=== PATIENT | female | born 1980 | race Caucasian/White ===

== ENCOUNTER → 2022-09-07 13:18 | Outpatient (BNVA) | payer OTHER, SELFPAY | PROVIDERS: PCP Internal Medicine Geriatric Medicine; Visit Provider Neurological Surgery | DX: M50.10 Cervical disc disorder with radiculopathy, unspecified cervical region (principal) | CPT/HCPCS: 99202 ==

== ENCOUNTER 2023-01-14 15:08 | Outpatient (AMB) | payer OTHER, SELFPAY ==
--- NOTE | 2023-01-14 15:24 | HO.SPINEOV ---
Intake Intake Visit Reasons: F/up after PT Intake Note: Mrs. Mehta is here today to follow up PT results. 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 Kathe diaz in August. She states that her neck pain with radicular symptoms down her left arm has gotten progressively worse since our last visit with Dr. Archuleta. She reports no symptom relief, even with her current tramadol prescription from her primary care provider. She is very concerned because she feels like she has increased weakness of her left arm and hand compared to when she saw Dr. Kathe diaz in August. She also endorses difficulty sleeping in the last couple of weeks and states that on average she is only able to sleep 2-3 hours per night. She had an MRI of the cervical spine done at [facility] on 08/04/2022 which showed a cervical disc herniation C6-C7 compressing the left C7 nerve root. An MRI of the lumbar spine shows status post lumbar fusion and adjacent degenerative disc disease and spinal stenosis. Dr. Archuleta sent her for an EMG, and recommended that she complete physical therapy then be seen back in the office for further discussion of her symptoms based on those results. Her EMG was completed at [facility] on 09/27/2022 and was completely unremarkable, without any signs of polyneuropathy or carpal tunnel. Due to these findings we think that her left C7 nerve root compression should be addressed. The MRI films were reviewed with ANABEL Balderas who also evaluated the patient with me today. It was decided that she should be booked for a C6-C7 ACDF. I will call her back we determine the date. Total amount of time spent in this visit was 30 minutes in discussion of symptoms, MRI cervical spine and EMG imaging results and subsequent plan of care. Brennon Archuleta MD,PhD [facility] Coding Level of Care Code Est Pt Level 4 (21784) Diagnoses Herniation of cervical intervertebral disc with radiculopathy M50.10
== END 2023-01-14 16:31 | disposition home or self-care (01) ==
PROVIDERS: PCP Internal Medicine Geriatric Medicine; Visit Provider Physician Assistant
DX: M50.10 Cervical disc disorder with radiculopathy, unspecified cervical region (principal)
CPT/HCPCS: 99214

== ENCOUNTER → 2023-01-14 15:08 | Outpatient (BNVA) | payer OTHER, SELFPAY | PROVIDERS: PCP Internal Medicine Geriatric Medicine; Visit Provider Physician Assistant | DX: M50.10 Cervical disc disorder with radiculopathy, unspecified cervical region (principal) | CPT/HCPCS: 99212 ==

== ENCOUNTER 2023-02-24 06:01 | Day surgery (SDC) | payer OTHER, SELFPAY ==
--- NOTE | 2023-02-10 | ECG_ITS ---
Test Reason : preop Blood Pressure : / mmHG Vent. Rate : 068 BPM Atrial Rate : 068 BPM P-R Int : 166 ms QRS Dur : 092 ms QT Int : 406 ms P-R-T Axes : 035 018 004 degrees QTc Int : 431 ms Normal sinus rhythm Normal ECG No previous ECGs available Referred By: Calixto Shi Electronically Signed By:VI BOOKER
[2023-02-10 11:59] VITALS: BP 131/84; PULSE 79; RESP 16; O2SAT 97; BMI 36.6
[2023-02-10 13:59] LABS: Hematocrit 39.9 % (37.0-47.0); Hemoglobin 13.5 g/dl (12.0-16.0); Mean Corpuscular HGB Conc 33.8 g/dl (31.0-35.0); Mean Corpuscular Volume 88.7 fL (80.0-98.0); Mean Platelet Volume 11.3 fL (9.4-12.3); Platelet Count 214 X10*3/uL (160-400); Red Cell Distribution Width 12.3 % (11.0-16.0); White Blood Count 4.8 X10*3/uL (4.8-10.8)
[2023-02-10 14:25] LABS: Anion Gap 13 (12-20); Blood Urea Nitrogen 14 mg/dL (9-16); Calcium 9.5 mg/dL (8.4-10.2); Carbon Dioxide 22 mmol/L (22-29); Chloride 108 mmol/L (96-108); Creatinine Clr Calc Pharmacy 115.1; Estimated Glomerular Filt Rate > 60; Glucose Random 84 mg/dL (60-115); Potassium 3.7 mmol/L (3.3-5.1); Sodium 139 mmol/L (135-145)
--- NOTE | 2023-02-23 09:51 | HO.ANESPROP2 ---
Documented by User: Saundra Gaspar NP 02/23/23 09:54 HPI - Anesthesia Eval Consult details Narrative: 42yo F for C6-7 Ant Cerv Discectomy w/ fusion s/p tubal Seen in PAT 02/10/[address] Jose Guadalupe BOWER Active Problems Active Problems: All Active Problems (Updated 02/10/23 @ 10:04 by Kati Cruz, RN) Herniation of cervical intervertebral disc with radiculopathy (Acute) Past Medical History Medical History (Updated 02/24/23 @ 06:30 by Adriane Conway, BALBINA) delivery delivered Spondylosis, lumbosacral PTSD (post-traumatic stress disorder) Numbness of foot Neck pain, chronic Migraine headache Major depression in remission Lumbar radiculopathy HTN (hypertension) Generalized anxiety disorder Dizziness BERRY I (cervical intraepithelial neoplasia I) Chronic low back pain Cervical stenosis of spinal canal Bilateral hand numbness ADD (attention deficit disorder) Surgical History Surgical History (Updated 02/10/23 @ 10:07 by Kati Cruz RN) History of tonsillectomy and adenoidectomy Hx of appendectomy History of colposcopy Hx of bilateral breast reduction surgery History of lumbar fusion History of tubal ligation Hx laparoscopic cholecystectomy Social History Social History Are you a primary patient centered care specialist to a significant other at home: Yes (daughter with spina bifida) Do you presently have visiting nurse or other home services: No Patient Tobacco Use Status: Former Tobacco user Quit Date: 04/2022 Tobacco use type: Cigarette Second Hand Smoke Exposure: No Meds Allergies Allergy/AdvReac Type Severity Reaction Status Date / Time erythromycin base Allergy Severe mouth sores Verified 02/09/23 09:29 amoxicillin Allergy Rash Verified 02/09/23 09:28 codeine AdvReac Severe Nausea and Verified 02/24/23 06:13 Vomiting Home Medications Medication Instructions Recorded Confirmed Last Taken Type albuterol sulfate 90 mcg/actuation 2 puff inhalation Q4H PRN wheezing 02/09/23 02/09/23 Unknown History aerosol inhaler (Ventolin HFA) amlodipine 5 mg tablet 7.5 mg PO DAILY 02/09/23 02/09/23 02/24/23 History dextroamphetamine-amphetamine 10 1 tab PO TID 02/09/23 02/09/23 Unknown History mg tablet gabapentin 600 mg tablet 600 mg PO TID 02/09/23 02/09/23 Unknown History meclizine 25 mg tablet 25 mg PO BID PRN dizziness 02/09/23 02/09/23 Unknown History oxycodone 5 mg tablet 5 mg PO Q6H PRN pain 02/09/23 02/09/23 02/24/23 History sumatriptan succinate 100 mg tablet 100 mg PO QD-BID PRN Headache 02/09/23 02/09/23 Unknown History acetaminophen 500 mg capsule 1,000 mg PO Q6H PRN Pain 02/10/23 02/10/23 Unknown History Exam Exam Date and Time: February 23, 2023 0951 Height,Weight and Vital Signs: Height 5 ft 2 in Weight 90.7 kg Last Vital Signs Pulse 79 02/10/23 11:59 Resp 16 02/10/23 11:59 BP 131/84 02/10/23 11:59 Pulse Ox 97 02/10/23 11:59 O2 Del Method Room Air 02/10/23 11:59 Pertinent Lab Results Pertinent Lab Results: Laboratory Tests 02/10/23 12:54 WBC 4.8 RBC 4.50 Hgb 13.5 Hct 39.9 MCV 88.7 MCH 30.0 MCHC 33.8 RDW 12.3 Plt Count 214 MPV 11.3 Absolute Nucleated RBC 0.000 Nucleated RBC % (auto) 0.0 Sodium 139 Potassium 3.7 Chloride 108 Carbon Dioxide 22 Anion Gap 13 BUN 14 Creatinine 0.68 Estim Creat Clear Calc 115.1 Estimated GFR > 60 Random Glucose 84 Calcium 9.5 Narrative Narrative: EKG 02/10/23 Vent. Rate : 068 BPM Atrial Rate : 068 BPM P-R Int : 166 ms QRS Dur : 092 ms QT Int : 406 ms P-R-T Axes : 035 018 004 degrees QTc Int : 431 ms Normal sinus rhythm Normal ECG No previous ECGs available Assessment and Plan Assessment Anesthesia Assessment: Chart Reviewed Documented by User: Paul Cox MD 02/24/23 18:26 [facility] Past Medical History Medical History (Updated 02/24/23 @ 06:30 by Adriane Conway RN) delivery delivered Spondylosis, lumbosacral PTSD (post-traumatic stress disorder) Numbness of foot Neck pain, chronic Migraine headache Major depression in remission Lumbar radiculopathy HTN (hypertension) Generalized anxiety disorder Dizziness BERRY I (cervical intraepithelial neoplasia I) Chronic low back pain Cervical stenosis of spinal canal Bilateral hand numbness ADD (attention deficit disorder) Functional capacity: independent ambulation Family History Family history of problems with anesthesia: No Surgical History Surgical History (Updated 02/10/23 @ 10:07 by Kati Cruz RN) History of tonsillectomy and adenoidectomy Hx of appendectomy History of colposcopy Hx of bilateral breast reduction surgery History of lumbar fusion History of tubal ligation Hx laparoscopic cholecystectomy History of Problems with Anesthesia: No Social History Social History Are you a primary patient centered care specialist to a significant other at home: Yes (daughter with spina bifida) Do you presently have visiting nurse or other home services: No Patient Tobacco Use Status: Former Tobacco user Quit Date: 04/2022 Tobacco use type: Cigarette Second Hand Smoke Exposure: No Meds Allergies Allergy/AdvReac Type Severity Reaction Status Date / Time erythromycin base Allergy Severe mouth sores Verified 02/09/23 09:29 amoxicillin Allergy Rash Verified 02/09/23 09:28 codeine AdvReac Severe Nausea and Verified 02/24/23 06:13 Vomiting Home Medications Medication Instructions Recorded Confirmed Last Taken Type albuterol sulfate 90 mcg/actuation 2 puff inhalation Q4H PRN wheezing 02/09/23 02/09/23 Unknown History aerosol inhaler (Ventolin HFA) amlodipine 5 mg tablet 7.5 mg PO DAILY 02/09/23 02/09/23 02/24/23 History dextroamphetamine-amphetamine 10 1 tab PO TID 02/09/23 02/09/23 Unknown History mg tablet gabapentin 600 mg tablet 600 mg PO TID 02/09/23 02/09/23 Unknown History meclizine 25 mg tablet 25 mg PO BID PRN dizziness 02/09/23 02/09/23 Unknown History oxycodone 5 mg tablet 5 mg PO Q6H PRN pain 02/09/23 02/09/23 02/24/23 History sumatriptan succinate 100 mg tablet 100 mg PO QD-BID PRN Headache 02/09/23 02/09/23 Unknown History acetaminophen 500 mg capsule 1,000 mg PO Q6H PRN Pain 02/10/23 02/10/23 Unknown History Exam Airway Mallampati Class: III TM Dist: >3cm Neck ROM: Limited Loose/Missing/Broken Teeth: Yes (poor dentition , chipped teeth ) Assessment and Plan Assessment Anesthesia Assessment: Anesthesia Plan Discussed Final Anesthetic Review Family History of Problems with Anesthesia: No History of Problems with Anesthesia: No NPO: Yes ASA Class: III Final Preanesthetic Review: Meds/Allgs Chart Reviewed, Consent Obtained/Reviewed and Anes Risks/Benef Reviewed Patient Risk: Intermediate Procedure Risk: Intermediate Anesthetic Plan Anesthetic Plan: GA and Agree w/ Assess. and Plan Disposition: Standard PACU
[2023-02-24] VITALS (13 sets, daily range): BP systolic 123–152; BP diastolic 68–86; PULSE 66–89; RESP 13–21; TEMP 36.2–37.3; O2SAT 95–100; BMI 35.8
--- NOTE | ~2023-02-24 | FL_ITS ---
EXAMINATION: XR FLUOROSCOPY WITH IMAGES CLINICAL INFORMATION: C6-C7 anterior cervical discectomy with fusion. COMPARISON: None available. TECHNIQUE: Fluoroscopy Supervised By: Dr. Chris Archuleta. Fluoroscopy Time: 0.1 minute. Cumulative Dose: 8.65 mGy. DAP: 1.67 Gycm2. Images: 2. FINDINGS: Images demonstrate ACDF of the lower cervical spine FL/FL guidance in OR IMPRESSION: Fluoroscopy guidance for cervical spine surgery.
[2023-02-24] MEDS: Lactated Ringers 1,000 ML 100 ML IVCONT (06:38)
[2023-02-24] MEDS: methocarbamoL 750 MG TABLET PO (06:56)
[2023-02-24] MEDS: Gabapentin 300 MG CAPSULE PO (06:56)
[2023-02-24] MEDS: vancomycin HCL 1,500 MG in 0.9 % Sodium Chloride 500 ML 333.33 MG IV (06:56)
--- NOTE | 2023-02-24 06:59 | MHC.SHP ---
Pre-Procedural Eval Section A Date of Service: 02/24/23 Section B Chief Complaint: Cervical disc disorder with radiculopathy, unspeci Allergies: Allergies Allergy/AdvReac Type Severity Reaction Status Date / Time erythromycin base Allergy Severe mouth sores Verified 02/09/23 09:29 amoxicillin Allergy Rash Verified 02/09/23 09:28 codeine AdvReac Severe Nausea and Verified 02/24/23 06:13 Vomiting Review of Systems Sugical H&P ROS: Negative: Constitution, Cardiovascular, Respiratory, Neurological, Psychiatric, Hem-Onc, Allergic/Immunologic, Gastrointestinal, Genitourinary, Musculoskeletal, Integumentary, Endocrine and Eyes/Ears/Nose/Throat Exam Surgical H&P Exam: Not Evaluated: HEENT, Not Evaluated: Heart, Not Evaluated: Lungs, Not Evaluated: Extremities, Not Evaluated: Abdomen, Not Evaluated: Skin and Not Evaluated: Neurological Plan Diagnosis/Plan: Unchanged I have reviewed the history and physical and performed a pertinent physical examination on my patient. No changes have occurred unless specified. Plan remains the same, C6-7 ACDF. Time Spent With Patient Time: Total time managing care of this patient today _10___ minutes.
--- NOTE | 2023-02-24 08:03 | PM.DS ---
DS: Providers Provider Primary care physician: Karlie Galloway MD DS: Summary Time Spent with Patient Time attestation: Total time managing care of this patient today ____ minutes. Physical Exam Vital Signs: Vital Signs: Last Vital Signs Temp 97.8 F 02/24/23 06:25 Pulse 72 02/24/23 06:25 Resp 16 02/24/23 06:25 BP 123/75 02/24/23 06:25 Pulse Ox 97 02/24/23 06:25 O2 Del Method Room Air 02/24/23 06:25 BMI result Body Mass Index 35.8 DS: Data Data Completed and Pending Labs on day of discharge: Laboratory Results - last 24 hr 02/24/23 06:29 Blood Type A Positive Antibody Screen NEGATIVE Discharge Plan Discharge Patient Disposition: Home, Self-Care Referrals: Karlie Galloway MD [Primary Care Provider] - 1 Week Discharge Medications: Continued gabapentin 600 mg tablet 600 mg PO TID sumatriptan succinate 100 mg tablet 100 mg PO QD-BID PRN (Reason: Headache) dextroamphetamine-amphetamine 10 mg tablet 1 tab PO TID amlodipine 5 mg tablet 7.5 mg PO DAILY meclizine 25 mg tablet 25 mg PO BID PRN (Reason: dizziness) albuterol sulfate [Ventolin HFA] 90 mcg/actuation HFA aerosol inhaler 2 puff inhalation Q4H PRN (Reason: wheezing) oxycodone 5 mg tablet 5 mg PO Q6H PRN (Reason: pain) acetaminophen 500 mg Capsule 1,000 mg PO Q6H PRN (Reason: Pain) Diet: Advance to usual diet Activity on Discharge: As tolerated Activity Restrictions/Additional Instructions: After your spinal surgery we ask you to observe the following restrictions/guidelines: Activity: It is normal to feel some discomfort as you increase your activity, but that will improve with time. We ask you avoid heavy lifting or acitivities that cause pain. As a general rule, 8lbs is a safe limit for lifting right after surgery. Walk as much as you feel comfortable but not to exhaustion. You will feel extra tired the first few days after surgery. Stay well hydrated. It is OK to walk up and down stairs You may return to driving when you are off narcotics (such as vicodin, oxycodone, dilaudid, etc), and you are back to normal functional capacity. If you have any concerns please check with office before driving. Return to work is specific to each patient and each surgery, so please speak with your doctor/PA at first follow up. Please bring paperwork such as FMLA at that time if you need it filled out. Medications: We will give you a short supply of narcotics after surgery (usually one weeks worth). If you need more please call the office but do not use more than prescribed. You will need to give our office 48 hours notice if you need narcotics refilled and we do not fill narcotics on weekends or evenings. If you are on a narcotic, it is a good idea to take a stool softener such as colace or senna to avoid constipation If you take blood thinner such as aspirin, Plavix, Coumadin, Effient, Eliquis etc for conditions such as Afib, DVT, Pulmonary embolus, coronary disease, stents etc please speak with your surgeon about specific details as to when you can resume these medications. You can resume NSAIDs on post op day 1 (eg: Motrin, Naproxen, etc). Follow up: Please call the office, , after surgery to arrange a 3 week follow up for wound check. Wound Care: You may remove your dressing on the first day after surgery. You may leave open to air. Please do not remove the steri strips underneath. they will fall off on their own in one week. IT IS NORMAL FOR THE WOUND TO OOZE OR BE BLOODY FOR A FEW DAYS AFTER SURGERY. IF THIS HAPPENS JUST PLACE NEW DRESSING OVER IT TO AVOID STAINING CLOTHES. You may shower on post op day # 1 We ask that you do not let the water soak the wound. If it does get wet, just towel dry lightly. Please do not scrub your incision or place any type of chemical/ointment on the wound. No tub baths, pools or jacuzzis for one month. If you have any leaking or redness from your wound, or fevers, please call the office.
--- NOTE | 2023-02-24 09:11 | P.OP_ITS ---
Operative Note Operative Note Date of Service: 02/24/23 Narrative: Preoperative Diagnosis: left cervical radiculopathy due to C6-C7 disc herniation compressing the left C7 nerve root. Procedure: [id number] discectomy, arthrodesis and implantation cage ; C6- C7 anterior instrumentation ; local autograft; microscope Informed Consent was obtained for this operation. I have explained the nature, purpose and benefits of the operation. I have discussed the risks and benefit of the operation including possible complications or adverse events with patient/family. Alternative(s) were discussed with the patient with their relative benefits and risks as well as the consequences of not accepting the operation were included in obtaining consent. Surgeon: HELENE TOMLINSON MD, PHD Procedure Assisted By: saul Wyman Description of Procedure: this 6-year-old female is suffering from severe left arm pain due to a disc herniation C6-C7 compressing the left C7 nerve root. She was offered an anterior diskectomy and fusion C6-7 to decompress the C7 nerve root. The proce dure and complications were explained. The patient was consented. The patient was brought to the operating room and endotracheally intubated. The patient was put in supine position with slight extension of the neck. Prep and drape was done followed by timeout. A mid cervical incision was made followed by opening of the platysma. The prevertebral fascia was reached following the natural planes while the physician healthcare administrative assistant provided manual retraction. The prevertebral fascia was opened to expose the disc space. A spinal needle was placed in the disk space to confirm the correct level with xray. The longus colli muscles were released bilaterally and a self retaining retractor was inserted. Two Browning pins were placed in the C6 and C7 vertebral bodies and distraction was give over the interspace. The discectomy was completed toward the posterior annulus of the disc. The microscope was brought in. The remainder of the discectomy was completed. The posterior ligament was opened and resected to expose the underlying dura. Disc fragments were seen in the left C7 foramen and removed piece meal with a curved pituitary until the underlying C7 nerve root was completely decompressed. A venous bleeding from the right C7 foramen was tamponade with Surgiflo. Osteophytes were resected from the body of C6 and C7 and saved for autograft. The endplates were prepared after which a 6 mm cage filled with autograft was inserted into the disc space. A separate attached plate was locked down with 2 x 14 mm screws as anterior instrumentation. Final x-rays in AP and lateral projection showed a satisfactory position of the implant. The physician healthcare administrative assistant took over. The Browning pin was removed. Hemostasis was done. He closed the incision in 2 layers with a 3-0 Vicryl. Steri-Strips used to approximate incision. An OpSite with Tegaderm was used to cover the incision. All sponge and needle counts were correct. Patient was extubated and transported in stable is to recovery room. Anesthesia: General Estimated Blood Loss (ml): 160 mL Duration of Surgery: 65 minutes Postoperative Plan: Discharge home Complications: None
--- NOTE | 2023-02-24 09:18 | P.DS_ITS ---
DS: Providers Provider Date of Service: 02/24/23 Date of discharge: 02/24/23 Primary care physician: Karlie Galloway MD Admitting clinician: Chris Archuleta DS: Summary Time Spent with Patient Time attestation: Total time managing care of this patient today ____ minutes. Discharge coordination time: Less than 30 minutes Quality: Safe Use of Opioids Does Pt have an Active Cancer Diagnosis on the Problem List?: No Quality: Stroke Does the patient have a stroke diagnosis?: No Physical Exam Vital Signs: Vital Signs: Last Vital Signs Temp 97.8 F 02/24/23 06:25 Pulse 72 02/24/23 06:25 Resp 16 02/24/23 06:25 BP 123/75 02/24/23 06:25 Pulse Ox 97 02/24/23 06:25 O2 Del Method Room Air 02/24/23 06:25 BMI result Body Mass Index 35.8 DS: Data Data Completed and Pending Labs on day of discharge: Laboratory Results - last 24 hr 02/24/23 06:29 Blood Type A Positive Antibody Screen NEGATIVE Discharge Plan Discharge Patient Disposition: Home, Self-Care Referrals: Karlie Galloway MD [Primary Care Provider] - 1 Week Discharge Medications: Continued gabapentin 600 mg tablet 600 mg PO TID sumatriptan succinate 100 mg tablet 100 mg PO QD-BID PRN (Reason: Headache) dextroamphetamine-amphetamine 10 mg tablet 1 tab PO TID amlodipine 5 mg tablet 7.5 mg PO DAILY meclizine 25 mg tablet 25 mg PO BID PRN (Reason: dizziness) albuterol sulfate [Ventolin HFA] 90 mcg/actuation HFA aerosol inhaler 2 puff inhalation Q4H PRN (Reason: wheezing) oxycodone 5 mg tablet 5 mg PO Q6H PRN (Reason: pain) acetaminophen 500 mg Capsule 1,000 mg PO Q6H PRN (Reason: Pain) Discharge Orders: Discharge Order (Routine); Ordered 02/24/23 Ordered By: Cyril Balderas Diet: Advance to usual diet Activity on Discharge: As tolerated Activity Restrictions/Additional Instructions: After your spinal surgery we ask you to observe the following restrictions/guidelines: Activity: It is normal to feel some discomfort as you increase your activity, but that will improve with time. We ask you avoid heavy lifting or acitivities that cause pain. As a general rule, 8lbs is a safe limit for lifting right after surgery. Walk as much as you feel comfortable but not to exhaustion. You will feel extra tired the first few days after surgery. Stay well hydrated. It is OK to walk up and down stairs You may return to driving when you are off narcotics (such as vicodin, oxycodone, dilaudid, etc), and you are back to normal functional capacity. If yo u have any concerns please check with office before driving. Return to work is specific to each patient and each surgery, so please speak with your doctor/PA at first follow up. Please bring paperwork such as FMLA at that time if you need it filled out. Medications: We will give you a short supply of narcotics after surgery (usually one weeks worth). If you need more please call the office but do not use more than prescribed. You will need to give our office 48 hours notice if you need narcotics refilled and we do not fill narcotics on weekends or evenings. If you are on a narcotic, it is a good idea to take a stool softener such as colace or senna to avoid constipation If you take blood thinner such as aspirin, Plavix, Coumadin, Effient, Eliquis etc for conditions such as Afib, DVT, Pulmonary embolus, coronary disease, stents etc please speak with your surgeon about specific details as to when you can resume these medications. You can resume NSAIDs on post op day 1 (eg: Motrin, Naproxen, etc). Follow up: Please call the office, , after surgery to arrange a 3 week follow up for wound check. Wound Care: You may remove your dressing on the first day after surgery. You may leave open to air. Please do not remove the steri strips underneath. they will fall off on their own in one week. IT IS NORMAL FOR THE WOUND TO OOZE OR BE BLOODY FOR A FEW DAYS AFTER SURGERY. IF THIS HAPPENS JUST PLACE NEW DRESSING OVER IT TO AVOID STAINING CLOTHES. You may shower on post op day # 1 We ask that you do not let the water soak the wound. If it does get wet, just towel dry lightly. Please do not scrub your incision or place any type of chemical/ointment on the wound. No tub baths, pools or jacuzzis for one month. If you have any leaking or redness from your wound, or fevers, please call the office.
[2023-02-24] MEDS: fentaNYL citrate/PF 100 MCG/2 ML VIAL 25 MCG IVPUSH ×4 (09:51→10:11)
[2023-02-24] MEDS: oxyCODONE HCl Immed Release 5 MG TABLET PO (10:36)
== END 2023-02-24 11:49 | disposition home or self-care (01) ==
PROVIDERS: Anesthesiology; PCP Internal Medicine Geriatric Medicine; Visit Provider Neurological Surgery
PROC: (CPT 22551; principal; 2023-02-24 07:30)
DX: M50.10 Cervical disc disorder with radiculopathy, unspecified cervical region (principal); M50.223 Other cervical disc displacement at C6-C7 level; G89.29 Other chronic pain; M51.36 Other intervertebral disc degeneration, lumbar region; M48.061 Spinal stenosis, lumbar region without neurogenic claudication; Z98.1 Arthrodesis status; I10 Essential (primary) hypertension; Z79.899 Other long term (current) drug therapy; Z88.1 Allergy status to other antibiotic agents; Z88.5 Allergy status to narcotic agent; Z87.891 Personal history of nicotine dependence
CPT/HCPCS: 22551; 22853; 20936; 22845; 36415; 80048; 85027; 86850; 86900; 86901; 93005; C1713; J0131; J1100; J2250; J2371; J2405; J3010; J3371

== ENCOUNTER → 2023-02-24 06:01 | Outpatient (BNV) | payer OTHER, SELFPAY | PROVIDERS: PCP Internal Medicine Geriatric Medicine; Visit Provider Neurological Surgery | DX: M50.10 Cervical disc disorder with radiculopathy, unspecified cervical region (principal) | CPT/HCPCS: 20936; 22551; 22845; 22853; 99499 ==

== ENCOUNTER 2023-03-11 10:35 | Outpatient (AMB) | payer OTHER, SELFPAY ==
--- NOTE | 2023-03-11 10:38 | HO.SPINEOV ---
Intake Intake Visit Reasons: 1st post op Intake Note: Ms. Mehta is here for her 1st post-op visit. 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 She reports she is very satisfied with the surgery and feels much better than she did preoperatively. The patient reports she is up walking around and completing all of her ADLs. She reports that she no longer suffers from her left-sided shooting radiculopathy down her arm. She is able to fully extend/ flex/ rotator neck without issues, and has been driving recently. 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 She was provided with a return to work note. Full strength 5/5 UE / LE. Mobility is intact. Sensation grossly intact. Patient is able to ambulate well, rises from a seated position without difficulty. Incision site is closed, well healing, with no signs of drainage. We will follow-up with the patient in 6 weeks for her 2nd postoperative visit. At that time we will get x-rays to review with the patient. Brennon Archuleta MD,PhD [facility] Coding Level of Care Code Global (42670) Diagnoses H/O cervical spine surgery Z98.890
== END 2023-03-11 10:47 | disposition home or self-care (01) ==
PROVIDERS: PCP Internal Medicine Geriatric Medicine; Visit Provider Physician Assistant
DX: Z98.890 Other specified postprocedural states (principal)
CPT/HCPCS: 99024

== ENCOUNTER 2023-03-11 10:35 | Outpatient (REF) | payer OTHER, SELFPAY | END 2023-03-11 10:36 | disposition home or self-care (01) | LOC: HO.HOSX 10:35 | PROVIDERS: PCP Internal Medicine Geriatric Medicine; Visit Provider Physician Assistant | DX: Z13.89 Encounter for screening for other disorder (principal) ==

== ENCOUNTER 2023-04-22 09:53 | Outpatient (AMB) | payer OTHER, SELFPAY ==
--- NOTE | 2023-04-22 10:12 | A.OFFVIS_ITS ---
Intake Intake Visit Reasons: 2nd post op with xrays Intake Note: pt here for 2nd post op with Xrays Allergies erythromycin base Allergy (Severe, Verified 02/09/23 09:29) mouth sores amoxicillin Allergy (Verified 02/09/23 09:28) Rash codeine Adverse Reaction (Severe, Verified 02/24/23 06:13) Nausea and Vomiting PFSH Medical History (Updated 02/24/23 @ 06:30 by Adriane Conway RN) delivery delivered Spondylosis, lumbosacral PTSD (post-traumatic stress disorder) Numbness of foot Neck pain, chronic Migraine headache Major depression in remission Lumbar radiculopathy HTN (hypertension) Generalized anxiety disorder Dizziness BERRY I (cervical intraepithelial neoplasia I) Chronic low back pain Cervical stenosis of spinal canal Bilateral hand numbness ADD (attention deficit disorder) Surgical History (Updated 03/11/23 @ 10:48 by ANABEL Boyer) History of tonsillectomy and adenoidectomy Hx of appendectomy History of colposcopy Hx of bilateral breast reduction surgery History of lumbar fusion History of tubal ligation Hx laparoscopic cholecystectomy Social History Are you a primary care coordination manager to a significant other at home: Yes (daughter with spina bifida) Do you presently have visiting nurse or other home services: No Comment: aware of trip hazard Patient Tobacco Use Status: Former Tobacco user Quit Date: 04/2022 Tobacco use type: Cigarette Second Hand Smoke Exposure: No Assessment & Plan Assessment & Plan (1) H/O cervical spine surgery: Code(s): Z98.890 - Other specified postprocedural states Plan Procedure: C6-C7 ACDF Jen comes in today for her 2nd postoperative visit. She reports she is very satisfied with the surgery and feels much better than she did pre-operatively. The patient reports she is up walking around and completing all of her ADLs. She reports that she no longer suffers from her shooting pains down her arms. She did report a recent episode of dizziness for which she was evaluated at [facility]. She reports they found no obvious reason for the dizziness, aside from an incidental finding on head CT of a Chiari 1 malformation. She reports she has had no symptoms since this incident. She did report a desire to be re-evaluated by us for a new complaint of low back pain which has been persistent for years but most recently has become more noticeable as her neck and arm pain has resolved. No neurological deficit. Patient is able to ambulate well, rises from a seated position without difficulty. Incision site is closed, well healing, with no signs of drainage. There is no need for further follow-up regarding this surgery. The patient will be making a new appointment for her low back. Brennon Archuleta MD,PhD [facility] Coding Level of Care Code Global (96963) Diagnoses H/O cervical spine surgery Z98.890
== END 2023-04-22 10:41 | disposition home or self-care (01) ==
PROVIDERS: PCP Internal Medicine Geriatric Medicine; Visit Provider Physician Assistant
DX: Z98.890 Other specified postprocedural states (principal)
CPT/HCPCS: 99024

== ENCOUNTER → 2023-04-22 09:53 | Outpatient (BNVA) | payer OTHER, SELFPAY | PROVIDERS: PCP Internal Medicine Geriatric Medicine; Visit Provider Physician Assistant ==

== ENCOUNTER 2023-04-22 09:55 | Outpatient (REF) | payer OTHER, SELFPAY ==
--- NOTE | ~2023-04-22 | XR_ITS ---
EXAMINATION: XR CERVICAL SPINE CLINICAL INFORMATION: Other specified postprocedural states COMPARISON: Intraoperative fluoroscopy 02/24/2023 TECHNIQUE: 4 views of the cervical spine were obtained. FINDINGS: There is reversal of the normal cervical lordosis. Alignment is otherwise unremarkable. There is no evidence of instability with flexion or extension positioning. Cervical vertebral body heights are maintained. Patient is status post ACDF of C6 on C7. Other cervical disc spaces are well-maintained. There is no prevertebral soft tissue swelling. Visualized lung apices are well aerated. XR/XR cervical spine 4V IMPRESSION: Postsurgical changes of the lower cervical spine. No evidence of instability.
== END 2023-04-22 09:56 | disposition home or self-care (01) ==
LOC: HO.HOSX 09:55
PROVIDERS: Visit Provider Physician Assistant
DX: Z47.89 Encounter for other orthopedic aftercare (principal); Z98.890 Other specified postprocedural states
CPT/HCPCS: 72050; 99212

== ENCOUNTER 2023-07-08 11:28 | Outpatient (AMB) | payer OTHER, SELFPAY ==
--- NOTE | 2023-07-08 12:11 | HO.SPINEOV ---
Intake Intake Visit Reasons: low back pain Intake Note: Ms. Mehta is here today c/o Low back pain. Home Insurance Agent Required: No Allergies erythromycin base Allergy (Severe, Verified 02/09/23 09:29) mouth sores amoxicillin Allergy (Verified 02/09/23 09:28) Rash codeine Adverse Reaction (Severe, Verified 02/24/23 06:13) Nausea and Vomiting Assessment & Plan Assessment & Plan (1) Chiari I malformation: Code(s): G93.5 - Compression of brain (2) Lumbar degenerative disc disease: Code(s): M51.36 - Other intervertebral disc degeneration, lumbar region Plan Mrs Mehta is here in follow-up. She underwent an ACDF with excellent results. What she wants to discuss today is issues with the low back. We did an L4-S1 interbody fusion in 2011 at [facility] for which she had excellent results but more recently she started developed back pain and shooting pain down into her leg and into her anterior thigh near her knee. An MRI from last year did show some evidence of adjacent segment disease both the time the pain was manageable so she more or less just tried to wait it out. She dealt with her cervical spinal issues 1st but now she feels like the leg pain is starting to get worse when she walks. She will get intermittent feelings of weakness as well. She also wanted to discuss her Chiari malformation today. She has a known history of Chiari 1, with posterior headaches. Her headaches also seen be getting worse. She has no recent evaluation on this in the last year. Similarly with her lumbar spine imaging, she has nothing up to date. Her neurological examination is nonfocal. She has been taking Tylenol throughout the day to help with the headaches and the leg pain. I will order new brain MRI and new lumbar MRI and see the patient back afterwards. Total amount of time spent in this visit was 20 minutes in discussion of symptoms, previous cervical and lumbar imaging results and subsequent plan of care Cyril Archuleta MD,PhD [facility] Orders: Orders MR lumbar spine wo con Today M51.36 - Other intervertebral disc degeneration, lumbar region MR head/brain wo con Today G93.5 - Compression of brain Coding Level of Care Code Est Pt Level 3 (24643) Diagnoses Chiari I malformation G93.5 Lumbar degenerative disc disease M51.36
== END 2023-07-08 13:01 | disposition home or self-care (01) ==
PROVIDERS: PCP Internal Medicine Geriatric Medicine; Visit Provider Physician Assistant
DX: G93.5 Compression of brain (principal); M51.36 Other intervertebral disc degeneration, lumbar region
CPT/HCPCS: 99213

== ENCOUNTER → 2023-07-08 11:28 | Outpatient (BNVA) | payer OTHER, SELFPAY | PROVIDERS: PCP Internal Medicine Geriatric Medicine; Visit Provider Physician Assistant | DX: M51.36 Other intervertebral disc degeneration, lumbar region (principal); G93.5 Compression of brain | CPT/HCPCS: 99212 ==

== ENCOUNTER 2023-08-19 11:28 | Outpatient (AMB) | payer OTHER, SELFPAY ==
--- NOTE | 2023-08-19 11:42 | HO.SPINEOV ---
Intake Intake Visit Reasons: low back pain Intake Note: Ms. Mehta is c/o low back pain. Kindergarten Instructional Assistant Required: No Allergies erythromycin base Allergy (Severe, Verified 02/09/23 09:29) mouth sores amoxicillin Allergy (Verified 02/09/23 09:28) Rash codeine Adverse Reaction (Severe, Verified 02/24/23 06:13) Nausea and Vomiting Assessment & Plan Assessment & Plan (1) Chiari I malformation: Code(s): G93.5 - Compression of brain (2) Lumbar degenerative disc disease: Code(s): M51.36 - Other intervertebral disc degeneration, lumbar region Plan Mrs Mehta is here in follow up. She underwent her brain mri and lumbar mri done at [place] and is here to disuss the results. The brain mri shows she has chiari one as seen on previous cervical mri. it is unchanged and does not have any significant crowding at the foramen magnum. There is no syrinx seen. There is no medullary kinking. I think she is borderline symptomatic from this and right now I do not think there is anything surgical that needs to be done done for it. She is well aware of the signs and symptoms and will let us know if she starts to develop any neurological problems. With regard to the lumbar spine, there is evidence of hardware from L3-S1, there is no significant adjacent segment disease that I can see and there is no nerve compression so I think that radiculopathy she is having could just be a phantom radiculopathy secondary to the previous operations. Overall it looks quite good considering the amount of work that was done. She will let us know if something changes down the road. At this point she can follow up on an as-needed basis. Total amount of time spent in this visit was 20 minutes in discussion of symptoms, brain MRI and lumbar imaging results and subsequent plan of care Cyril Archuleta MD,PhD [facility] Coding Level of Care Code Est Pt Level 3 (88879) Diagnoses Chiari I malformation G93.5 Lumbar degenerative disc disease M51.36
== END 2023-08-19 12:11 | disposition home or self-care (01) ==
PROVIDERS: PCP Internal Medicine Geriatric Medicine; Visit Provider Physician Assistant
DX: G93.5 Compression of brain (principal); M51.36 Other intervertebral disc degeneration, lumbar region
CPT/HCPCS: 99213

== ENCOUNTER → 2023-08-19 11:28 | Outpatient (BNVA) | payer OTHER, SELFPAY | PROVIDERS: PCP Internal Medicine Geriatric Medicine; Visit Provider Physician Assistant | DX: M51.36 Other intervertebral disc degeneration, lumbar region (principal); G93.5 Compression of brain | CPT/HCPCS: 99212 ==

== ENCOUNTER → 2024-04-10 11:08 | Outpatient (BNVA) | payer OTHER, SELFPAY | PROVIDERS: PCP Internal Medicine Geriatric Medicine; Visit Provider Physician Assistant Surgical ==

== ENCOUNTER 2024-04-20 08:07 | Outpatient (AMB) | payer OTHER, SELFPAY ==
--- NOTE | 2024-04-20 08:06 | A.OFFVIS_ITS ---
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 BMI 39.3 Allergies erythromycin base Allergy (Severe, Verified 04/20/24 08:06) mouth sores amoxicillin Allergy (Verified 04/20/24 08:06) Rash codeine Adverse Reaction (Severe, Verified 04/20/24 08:06) Nausea and Vomiting Medication List - Last Reconciled 04/20/24 by Juanito Philippe MD acetaminophen 1,000 mg PO Q6H PRN albuterol sulfate 90 mcg/actuation (Ventolin HFA) 2 puffs inhalation Q4H PRN amlodipine 7.5 mg PO DAILY calcium carbonate (Tums) 200 mg PO TID dextroamphetamine-amphetamine 10 mg 1 tab PO TID gabapentin 600 mg PO TID losartan 25 mg PO DAILY HPI HPI 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 BMI 39.3: Details: Start time: 8.00am, End time: 8.54am ?I spent 49 minutes speaking with the patient on the phone plus an additional 5 minutes reviewing and updating records for a total of 54 minutes HPI Comments Details: Previous weight loss efforts: exercise, OTC pills Wakes up: 7am, Sleeps: 11pm Breakfast: skips Lunch: 12-2pm (sandwich) Dinner: 6pm (chicken/steak, pasta) Snacks: 3-4pm (crackers), 8pm (granola bars, cookies, crackers) Exercise: none Fluids: Coffee (1 cup/day), tea: none, soda: none, juice: none, ETOH: none PFSH Medical History (Updated 04/20/24 @ 08:40 by Juanito Philippe MD) GERD (gastroesophageal reflux disease) Anxiety ADHD Asthma BMI 39.0-39.9,adult Obesity delivery delivered Spondylosis, lumbosacral PTSD (post-traumatic stress disorder) Numbness of foot Neck pain, chronic Migraine headache Major depression in remission Lumbar radiculopathy HTN (hypertension) Generalized anxiety disorder Dizziness BERRY I (cervical intraepithelial neoplasia I) Chronic low back pain Cervical stenosis of spinal canal Bilateral hand numbness ADD (attention deficit disorder) Surgical History (Updated 03/11/23 @ 10:48 by ANABEL Boyer) History of tonsillectomy and adenoidectomy Hx of appendectomy History of colposcopy Hx of bilateral breast reduction surgery History of lumbar fusion History of tubal ligation Hx laparoscopic cholecystectomy Family History (Updated 04/10/24 @ 11:57 by Laila Bull CMA) Mother Heart attack Hypertension Obesity Father Heart attack Bipolar 1 disorder Daughter Kidney problem Spina bifida Son ADHD Daughter Anxiety Social History (Updated 04/10/24 @ 11:58 by Laila Bull [facility]) 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 a significant other at home: Yes (daughter with spina bifida) Do you presently have visiting nurse or other home services: No Alcohol intake: never Comment: aware of trip hazard Patient Tobacco Use Status: Former Tobacco user Tobacco use type: Cigarette Second Hand Smoke Exposure: No Telehealth Telehealth Telehealth Platform: Telephone Location of provider rendering services: practice address Location of patient: address on file Patient Identification confirmed using: Name, : Yes Telehealth method: voice only Patient verbally consented to treatment: Yes Patient verbally consented to billing insurance company: Yes Patient informed of any privacy concerns related to visit: Yes Minutes spent on Phone/Video with Pt.: 54 Assessment & Plan Assessment & Plan (1) Obesity: Code(s): E66.9 - Obesity, unspecified Category: Medical Qualifiers: Obesity type: due to excess calories Obesity classification: adult class 2 (BMI 35 - 39.9) Serious obesity comorbidity presence: with serious comorbidity Body mass index: BMI 39.0-39.9 Qualified Code(s): E66.812 - Obesity, class 2; E66.01 - Morbid (severe) obesity due to excess calories; Z68.39 - Body mass index [BMI] 39.0-39.9, adult Plan: 1.? Plan for lap sleeve gastrectomy. If diaphragmatic or ventral hernias are present at time of surgery, these will be repaired laparoscopically as well. Risks and complications include possible conversion to an open procedure, anastomotic leak, bleeding requiring transfusion, small bowel obstruction, , DVT and pulmonary embolism, cardiac, or pulmonary complications, as alf complications such as anastomotic ulcer, insufficient weight loss and vitamin deficiencies. I emphasized the importance of close follow-up, adherence to instructions and good communication. 2. You will receive a link of our software lyndsay to generate an individualized nutritional and exercise plan specific for you. Please send me a screenshot of the plans you will generate Meal to include lean meat (beef, fish, pork, turkey, chicken), or persian yogurt, or egg whites, or beans with a salad with olive oil and fruits (berries, pears, apples, kiwi). Avoid salt, breads, potatoes, rice, pasta, desserts. ?3. If you choose shakes, each shake would be drunk slowly, like coffee in a period of 2 hours. ?4. If you choose bars, cut each bar in 4 pieces and eat each piece in 30min ?to make each bar last 2 hours. ?5. I emphasized the importance of measuring accurately the food portion and measure it when serving the food in plate ?6. The meal portions include a specific number of forks of meat and salad. You always eat the meat portion but you can replace up to half of salad/vegetables portion with rice, potatoes or pasta, or a fruit ?if you like. The less you do it the better weight loss will be. ?7. One full-size fork is what it can be scooped on the fork without falling aside and not what can be bit with the fork. Use regular forks like those you find in a typical restaurant. ?8.? Please buy the body composition scale we discussed and send me weight measurements as soon as possible and then once a week. Always include your diet and exercise plan. 9. The best choice would be to purchase a stationary bike, elliptical or treadmill at home that can track calories. Let me know if you do so I can give you an exercise plan. ?10.?It is important of avoiding and for at least 18 months postoperatively and has been discussed at the infosession. ?11. Goal is to lose at least 1.5-2lbs per week ?12. Goal to lose 10% of your weight before surgery, which is about 21lbs. Ultimate weight goal: 193lbs before surgery 13. Please follow the diet plan exactly without any change. If you don't like something about the plan or you feel hungry you need to communicate with me so I can help you revise the plan. You should not change the plan yourself. 14. To be scheduled for EGD due to the history of GERD on Tuesday04/25/2024. The possibility of biopsies was discussed. Patient needs to avoid use of NSAIDs and aspirin for 1 week prior to EGD. You must be on liquids only the day before your endoscopy. Risks of perforation and bleeding was discussed with the patient. This will be an outpatient procedure with IV sedation. Orders: Orders Insulin Today E66.9 - Obesity, unspecified, F41.9 - Anxiety disorder, unspecified, F90.9 - Attention-deficit hyperactivity disorder, unspecified type, I10 - Essential (primary) hypertension, K21.9 - Gastro-esophageal reflux disease without esophagitis, Z68.39 - Body mass index [BMI] 39.0-39.9, adult H Pylori Breath Test Today E66.9 - Obesity, unspecified, F41.9 - Anxiety disorder, unspecified, F90.9 - Attention-deficit hyperactivity disorder, unspecified type, I10 - Essential (primary) hypertension, K21.9 - Gastro- esophageal reflux disease without esophagitis, Z68.39 - Body mass index [BMI] 39.0-39.9, adult Complete Blood Count Auto Diff Today E66.9 - Obesity, unspecified, F41.9 - Anxiety disorder, unspecified, F90.9 - Attention-deficit hyperactivity disorder, unspecified type, I10 - Essential (primary) hypertension, K21.9 - Gastro- esophageal reflux disease without esophagitis, Z68.39 - Body mass index [BMI] 39.0-39.9, adult Comprehensive Met. Panel Today E66.9 - Obesity, unspecified, F41.9 - Anxiety disorder, unspecified, F90.9 - Attention-deficit hyperactivity disorder, unspecified type, I10 - Essential (primary) hypertension, K21.9 - Gastro- esophageal reflux disease without esophagitis, Z68.39 - Body mass index [BMI] 39.0-39.9, adult Vitamin B12 and Folate Today E66.9 - Obesity, unspecified, F41.9 - Anxiety di sorder, unspecified, F90.9 - Attention-deficit hyperactivity disorder, unspecified type, I10 - Essential (primary) hypertension, K21.9 - Gastro- esophageal reflux disease without esophagitis, Z68.39 - Body mass index [BMI] 39.0-39.9, adult Zinc Today E66.9 - Obesity, unspecified, F41.9 - Anxiety disorder, unspecified, F90.9 - Attention-deficit hyperactivity disorder, unspecified type, I10 - Essential (primary) hypertension, K21.9 - Gastro-esophageal reflux disease without esophagitis, Z68.39 - Body mass index [BMI] 39.0-39.9, adult Vitamin B1 Today E66.9 - Obesity, unspecified, F41.9 - Anxiety disorder, unspecified, F90.9 - Attention-deficit hyperactivity disorder, unspecified type, I10 - Essential (primary) hypertension, K21.9 - Gastro-esophageal reflux disease without esophagitis, Z68.39 - Body mass index [BMI] 39.0-39.9, adult Vitamin A Today E66.9 - Obesity, unspecified, F41.9 - Anxiety disorder, unspec ified, F90.9 - Attention-deficit hyperactivity disorder, unspecified type, I10 - Essential (primary) hypertension, K21.9 - Gastro-esophageal reflux disease without esophagitis, Z68.39 - Body mass index [BMI] 39.0-39.9, adult Ferritin Today E66.9 - Obesity, unspecified, F41.9 - Anxiety disorder, unspecified, F90.9 - Attention-deficit hyperactivity disorder, unspecified type, I10 - Essential (primary) hypertension, K21.9 - Gastro-esophageal reflux disease without esophagitis, Z68.39 - Body mass index [BMI] 39.0-39.9, adult ECG 12 lead EKG Today E66.9 - Obesity, unspecified, F41.9 - Anxiety disorder, unspecified, F90.9 - Attention-deficit hyperactivity disorder, unspecified type, I10 - Essential (primary) hypertension, K21.9 - Gastro-esophageal reflux disease without esophagitis, Z68.39 - Body mass index [BMI] 39.0-39.9, adult FL upper GI w air Today E66.9 - Obesity, unspecified, F41.9 - Anxiety disorder, unspecified, F90.9 - Attention-deficit hyperactivity disorder, unspecified type, I10 - Essential (primary) hypertension, K21.9 - Gastro-esophageal reflux disease without esophagitis, Z68.39 - Body mass index [BMI] 39.0-39.9, adult Hemoglobin A1c Today E66.9 - Obesity, unspecified, F41.9 - Anxiety disorder, unspecified, F90.9 - Attention-deficit hyperactivity disorder, unspecified type, I10 - Essential (primary) hypertension, K21.9 - Gastro-esophageal reflux disease without esophagitis, Z68.39 - Body mass index [BMI] 39.0-39.9, adult Lipid Panel Today E66.9 - Obesity, unspecified, F41.9 - Anxiety disorder, unspecified, F90.9 - Attention-deficit hyperactivity disorder, unspecified type, I10 - Essential (primary) hypertension, K21.9 - Gastro-esophageal reflux disease without esophagitis, Z68.39 - Body mass index [BMI] 39.0-39.9, adult IRON PROFILE Today E66.9 - Obesity, unspecified, F41.9 - Anxiety disorder, uns pecified, F90.9 - Attention-deficit hyperactivity disorder, unspecified type, I10 - Essential (primary) hypertension, K21.9 - Gastro-esophageal reflux disease without esophagitis, Z68.39 - Body mass index [BMI] 39.0-39.9, adult C Reactive Protein Today E66.9 - Obesity, unspecified, F41.9 - Anxiety disorder, unspecified, F90.9 - Attention-deficit hyperactivity disorder, u nspecified type, I10 - Essential (primary) hypertension, K21.9 - Gastro- esophageal reflux disease without esophagitis, Z68.39 - Body mass index [BMI] 39.0-39.9, adult TSH reflex Free T4 Today E66.9 - Obesity, unspecified, F41.9 - Anxiety disorder, unspecified, F90.9 - Attention-deficit hyperactivity disorder, unspecified type, I10 - Essential (primary) hypertension, K21.9 - Gastro- esophageal reflux disease without esophagitis, Z68.39 - Body mass index [BMI] 39.0-39.9, adult Vitamin D 25-OH Total Today E66.9 - Obesity, unspecified, F41.9 - Anxiety disorder, unspecified, F90.9 - Attention-deficit hyperactivity disorder, unspecified type, I10 - Essential (primary) hypertension, K21.9 - Gastro- esophageal reflux disease without esophagitis, Z68.39 - Body mass index [BMI] 39.0-39.9, adult US abdomen comp w elastography Today E66.9 - Obesity, unspecified, F41.9 - Anxiety disorder, unspecified, F90.9 - Attention-deficit hyperactivity disorder, unspecified type, I10 - Essential (primary) hypertension, K21.9 - Gastro- esophageal reflux disease without esophagitis, Z68.39 - Body mass index [BMI] 39.0-39.9, adult XR chest 2V Today E66.9 - Obesity, unspecified, F41.9 - Anxiety disorder, unspecified, F90.9 - Attention-deficit hyperactivity disorder, unspecified type, I10 - Essential (primary) hypertension, K21.9 - Gastro-esophageal reflux disease without esophagitis, Z68.39 - Body mass index [BMI] 39.0-39.9, adult Referrals Behavioral Health Referral E66.9 - Obesity, unspecified, F41.9 - Anxiety disorder, unspecified, F90.9 - Attention-deficit hyperactivity disorder, unspecified type, I10 - Essential (primary) hypertension, K21.9 - Gastro- esophageal reflux disease without esophagitis, Z68.39 - Body mass index [BMI] 39.0-39.9, adult Nutrition/Dietitian Referral E66.9 - Obesity, unspecified, F41.9 - Anxiety disorder, unspecified, F90.9 - Attention-deficit hyperactivity disorder, unspecified type, I10 - Essential (primary) hypertension, K21.9 - Gastro- esophageal reflux disease without esophagitis, Z68.39 - Body mass index [BMI] 39.0-39.9, adult
[2024-04-20 08:22] VITALS: BMI 39.2
== END 2024-04-20 08:55 | disposition home or self-care (01) ==
LOC: HO.HBS 08:09
PROVIDERS: PCP Internal Medicine Geriatric Medicine; Visit Provider Surgery
DX: E66.812 Obesity, class 2 (principal); E66.01 Morbid (severe) obesity due to excess calories; Z68.39 Body mass index [BMI] 39.0-39.9, adult
CPT/HCPCS: 99204

== ENCOUNTER → 2024-04-20 08:07 | Outpatient (BNVA) | payer OTHER, SELFPAY | PROVIDERS: PCP Internal Medicine Geriatric Medicine; Visit Provider Surgery ==

== ENCOUNTER 2024-04-25 08:20 | Day surgery (SDC) | payer OTHER, SELFPAY ==
[2024-04-25] MEDS: Lactated Ringers 1,000 ML 80 ML IVCONT (09:01)
[2024-04-25 09:02] VITALS: BP 112/79; PULSE 69; RESP 16; TEMP 36.1; O2SAT 97; BMI 39.9
--- NOTE | 2024-04-25 09:37 | MHC.SHP ---
Pre-Procedural Eval Section A - 24 Hr Update-Section A only Date of Service: 04/25/24 The patient is an INPATIENT: No The patient has been examined within 24 hours of the surgical procedure. The History & Physical has been completed within 30 days and I have reviewed it.: Yes Section B - Complete if H&P > 30 days Chief Complaint: Morbid (severe) obesity due to excess calories Details of Present Illness: GERD Relevant Family History (Specify if Yes): No Relevant Social History: None Present Medications: None Medical History: No relevant PMH History of Previous Operations: No relevant previous surgery Allergies: Allergies Allergy/AdvReac Type Severity Reaction Status Date / Time erythromycin base Allergy Severe mouth sores Verified 04/25/24 09:00 amoxicillin Allergy Rash Verified 04/25/24 09:00 codeine AdvReac Severe Nausea and Verified 04/25/24 09:00 Vomiting Review of Systems Sugical H&P ROS: Negative: Constitution, Cardiovascular, Respiratory, Neurological, Psychiatric, Hem-Onc, Allergic/Immunologic, Gastrointestinal, Genitourinary, Musculoskeletal, Integumentary, Endocrine and Eyes/Ears/Nose/Throat Exam Surgical H&P Exam: Normal: HEENT, Normal: Heart, Normal: Lungs, Normal: Extremities, Normal: Abdomen, Normal: Skin and Normal: Neurological Plan Diagnosis/Plan: Unchanged (EGD to assess etiology of GERD. Risks of bleeding and perforation were discussed with the patient and she is in agreement with the plan.) I have reviewed the history and physical and performed a pertinent physical examination on my patient. No changes have occurred unless specified. Time Spent With Patient Time: Total time managing care of this patient today ____ minutes.
--- NOTE | 2024-04-25 09:43 | PM.OP ---
Brief Operative Note Date of Service: 04/25/24 Pre-op diagnosis: GERD Post-op diagnosis: same Procedure: PROCEDURE DATE: 04/25/2024 PREOPERATIVE DIAGNOSIS: GERD POSTOPERATIVE DIAGNOSIS: ?Same as above. 1) small hiatal hernia, 2) distal gastritis PROCEDURE: Oasylyog-lyyimo-egufcvnrslhw with biopsies Surgeon: ?Jamir Philippe M.D.. Ph.D. Range Mounter: None ? Anesthesia: IV sedation Estimated blood loss: ?Minimal FINDINGS AND PROCEDURE: ? OPERATIVE INDICATIONS: ?The patient is a 43 year old female known to me who is interested in bariatric surgery. The patient has GERD. Based on this information I recommended an upper endoscopy to evaluate the patient's symptoms. Risks and complications of the surgery were discussed with the patient in advance particularly the possibility of perforation or bleeding that may require surgical intervention. The patient understood the risks and was in agreement with the plan. ? PROCEDURE: After informed consent was obtained by the patient, the patient was ?transferred to the Operating Room and was placed in the supine position.? After successful induction of IV sedation, a mouth block was inserted and the patient was placed in the left lateral decubitus position. An upper endoscopy was performed next, the oropharynx and esophagus appeared within the normal limits. There was a small 2cm hiatal hernia. The z-line was smooth. Two biopsies were obtained from the distal esophagus 2-3 cm proximal to the GE junction and two additional biopsies from the GE junction. The stomach was entered and it appeared to be of normal size. There were small gastric polyps at the body of the stomach. One of them was biopsied twice. There was gastritis at distal antrum. There was no stricture or ulcer. A biopsy was obtained from the gastric fundus and the antrum. No significant bleeding was noted from any of the biopsy sites. Retroflexion of the scope confirmed the presence of a small diaphragmatic hernia. The scope was then advanced into the duodenum which appeared to be normal as well. At that point the duodenum ?and the stomach were decompressed and the scope was withdrawn from the patient's mouth. The patient extubated and was transferred in stable condition to the Recovery Room for further care. I was present and performed all steps of the procedure. There were no residents to assist with this case. Jamir Philippe M.D., Ph.D. Surgeon: Juanito Philippe MD Anesthesia: MAC Was an Range Mounter used for this Procedure?: No Estimated blood loss (mL): 0 IV fluids (mL): 400 Urine output (mL): 0 (No [place]apa to record output) Pathology: other (1) antrum x1, 2) fundus x1, 3) GE junction x2, 4) distal esophagus x2, 5) gastric polyp x2) Condition: stable Disposition: PACU
[2024-04-25 10:10] VITALS: BP 108/62; PULSE 67; RESP 16; TEMP 36.3; O2SAT 100
[2024-04-25 10:25] VITALS: BP 106/65; PULSE 75; RESP 20; O2SAT 100
[2024-04-25 10:45] VITALS: BP 113/72; PULSE 68; RESP 20; TEMP 36.6; O2SAT 100
== END 2024-04-25 11:18 | disposition home or self-care (01) ==
PROVIDERS: PCP Internal Medicine Geriatric Medicine; Visit Provider Surgery
PROC: 0DJ08ZZ Inspection of Upper Intestinal Tract, Via Natural or Artificial Opening Endoscopic (ICD-10-PCS; CPT 43235; principal; 2024-04-25 09:30)
DX: K21.9 Gastro-esophageal reflux disease without esophagitis (principal); E66.01 Morbid (severe) obesity due to excess calories; Z68.39 Body mass index [BMI] 39.0-39.9, adult; K29.60 Other gastritis without bleeding; K31.7 Polyp of stomach and duodenum; K44.9 Diaphragmatic hernia without obstruction or gangrene; I10 Essential (primary) hypertension; J45.909 Unspecified asthma, uncomplicated; F32.5 Major depressive disorder, single episode, in full remission; F43.10 Post-traumatic stress disorder, unspecified; F41.9 Anxiety disorder, unspecified; F90.9 Attention-deficit hyperactivity disorder, unspecified type; Z79.899 Other long term (current) drug therapy; Z88.1 Allergy status to other antibiotic agents; Z88.5 Allergy status to narcotic agent; Z98.890 Other specified postprocedural states; Z90.49 Acquired absence of other specified parts of digestive tract; Z87.891 Personal history of nicotine dependence
CPT/HCPCS: 43239; 88305; 88313; 88342; J2003; J2704

== ENCOUNTER → 2024-04-25 08:20 | Outpatient (BNV) | payer OTHER, SELFPAY | PROVIDERS: PCP Internal Medicine Geriatric Medicine; Visit Provider Surgery | DX: K44.9 Diaphragmatic hernia without obstruction or gangrene (principal) | CPT/HCPCS: 43239 ==

== ENCOUNTER → 2024-05-02 08:13 | Outpatient (AMB) | payer OTHER, SELFPAY ==
--- NOTE | 2024-05-02 08:00 | A.OFFWM_ITS ---
Intake Intake Visit Reasons: VIDEO Intake Allergies erythromycin base Allergy (Severe, Verified 04/25/24 09:00) mouth sores amoxicillin Allergy (Verified 04/25/24 09:00) Rash codeine Adverse Reaction (Severe, Verified 04/25/24 09:00) Nausea and Vomiting [facility] Medical History (Updated 05/02/24 @ 09:06 by Sabrina Flores [facility]) GERD (gastroesophageal reflux disease) Anxiety ADHD Asthma BMI 39.0-39.9,adult Obesity delivery delivered Spondylosis, lumbosacral PTSD (post-traumatic stress disorder) Numbness of foot Neck pain, chronic Migraine headache Major depression in remission Lumbar radiculopathy HTN (hypertension) Generalized anxiety disorder Dizziness BERRY I (cervical intraepithelial neoplasia I) Chronic low back pain Cervical stenosis of spinal canal Bilateral hand numbness ADD (attention deficit disorder) Surgical History (Updated 03/11/23 @ 10:48 by ANABEL Boyer) History of tonsillectomy and adenoidectomy Hx of appendectomy History of colposcopy Hx of bilateral breast reduction surgery History of lumbar fusion History of tubal ligation Hx laparoscopic cholecystectomy Family History (Updated 04/10/24 @ 11:57 by Laila Bull CMA) Mother Heart attack Hypertension Obesity Father Heart attack Bipolar 1 disorder Daughter Kidney problem Spina bifida Son ADHD Daughter Anxiety Social History (Updated 04/10/24 @ 11:58 by Laila Bull CMA) Are you a primary residential caregiver to a significant other at home: Yes (daughter with spina bifida) Do you presently have visiting nurse or other home services: No Alcohol intake: never Comment: aware of trip hazard Patient Tobacco Use Status: Former Tobacco user Tobacco use type: Cigarette Second Hand Smoke Exposure: No Behavioral Health Assessment Weight Management Therapy Therapy Notes Details PT is a 43 years old Female, who presents for a visit to complete BH assessment as part of surgical weight loss program. Presenting Concerns Referral Source WMP- Provider. Reason for referral Completion of behavioral health assessment as part of process for weight-loss surgery. Precipitating Event Obesity. Initial weight at weight check lyndsay 04/10/24 was 214 lbs. Food/Weight/Diet Expectations of change Initial Goal to lose 10% of her weight before surgery, which is about 21 lbs. Ultimate weight goal: 193lbs before surgery. PT started on 04/20 at 214Lbs. Patient goals are PT is implementing the following: Current meal plan: Exercise plan: History/Relationship with food Example of meals before starting the program: Breakfast: Lunch: Dinner: Snacks: Drinks/Liquids: History/Relationship with weight In the last 10 years, the patient's Lowest weight was and highest Social History Family history and relationship since 2020. They have been together for 10 years, and he's the father of her youngest. PT has 3 biological children and 2 adult stepchildren by . She also has other 7 children who are the kids of her ex-partner. PT has 2 brothers, they live close. The parents are alive but not together. Father lives close to her, and Mom lives in [place]. PT reports her family is very close. 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 Her youngest had kidney failure and is waiting for a transplant. Since 2020 living with them - Step-son is 28 Developmental history and status None. Currently diagnosed with adult ADHD in 2021 by her prescriber. Social support Mother and best friend. The is supportive but has his own challenges. Community support PCP, provider. 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 Cultural/Ethnic information . Legal Involvement and History Current or historical involvement with the legal system? None reported. Education Highest grade completed HS. Currently enrolled in educational program? Yes (In her second year of college.) Interested in further educational program? No Educational Interests/Skills Enrolled in college. 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 No Meaningful activities Read, terry, crafting. Financial Situation Describe current financial situation Comfortable and Occasional struggle Financial assistance? Food [place] and Disability (For . ) Service Service? Yes ([place] - out in 2007) Mental Health and Addiction Treatment Current/Past substance abuse? No Comments Alcohol: None. maybe once at year 1 drink. Cigarettes/Tobacco: quit in 2022 Cannabis/Edibles: in the past due to spinal issues. Nothing since 2021. Current/Past addictive behavior concerns? No Psychiatric history PT reports she has a history of anxiety and panic attacks, which started in 2007 triggered by family events. PT has never been in counseling as an adult. But is considering. She had a therapist as a teen as her brother from cancer. PT attends outpatient psychiatric [facility] at [facility]. She sees Rosario Jones CNP. Current medication: - Gabapentin 600mg for anxiety - Dextroamphetamine 10mg, 3 a day. For A DHD. PT denies ever being in crisis or inpatient for mental health. There is no history and/or current concern about SI/Sa and self-harm or other harm. Pain Screening Current pain? Yes Pain in the last few months? Yes Comments Back issues. Makes working out very difficult. Questionnaires PHQ-9 Over the last 2 weeks, how often have you been bothered by any of the following problems? 1. Little interest or pleasure in doing things: more than half the days 2. Feeling down, depressed, or hopeless: more than half the days 3. Trouble falling or staying asleep, or sleeping too much: several days 4. Feeling tired or having little energy: several days 5. Poor appetite or overeating: nearly every day 6. Feeling bad about yourself - or that you are a failure or have let yourself or your family down: several days 7. Trouble concentrating on things, such as reading the newspaper or watching television: several days 8. Moving or speaking so slowly that other people could have noticed. Or the opposite - being so fidgety or restless that you have been moving around a lot more than usual: not at all 9. Thoughts that you would be better off or of hurting yourself in some way: not at all Total score: 11 Depression Screening Interpretation: Positive (From new PT pack, scanned in system on 04/27. New one will be administered at next visit. ) Depression Screening Done: Yes Source: Developed by Drs. Reij Jimenez, Yaritza Hagen, Socrates Conley and colleagues, with an educational mariya from [employer] Binge Eating Scale Group 1 A. I don't feel self-conscious about my wt. or body size when I'm with others. B. I feel concerned about how I look to others, but it normally does not make me fell disappointed with myself C. I do get self-conscious about my appearance and wt. which makes me feel disappointed in myself. D. I feel very self-conscious about my wt. and frequently I feel intense shame and disgust for myself. I try to avoid social contacts because of my self- consciousness. Response Group 1: C Group 2 A. I don't have any difficulty eating slowly in the proper manner. B. Although I seem to gobble down foods, I don't end up feeling stuffed because of eating to much. C. At times, I tend to eat quickly and then, I feel uncomfortably full afterwards. D. I have the habit of bolting down my food, without really chewing it. When this happens I usually feel uncomfortably stuffed because I've eaten to much. Response Group 2: A Group 3 A. I feel capable to control my eating urges when I want to. B. I feel like I have failed to control my eating more than the average person. C. I feel utterly helpless when it comes to feeling in control of my eating urges. D. Because I feel so helpless about controlling my eating I have become very desperate about trying to get control. Response Group 3: D Group 4 A. I don't have the habit of eating when I'm bored. B. I sometimes eat when I'm bored, but often I'm able to get busy and get my mind off food. C. I have a regular habit of eating when I'm bored, but occasionally, I can use some other activity to get my mind off eating. D. I have a strong habit of eating when I'm bored. Nothing seems to help me breath the habit. Response Group 4: B Group 5 A. I'm usually physically hungry when I eat something. B. Occasionally, I eat something on impulse even though I really am not hungry. C. I have the regular habit of eating foods, that I might not really enjoy, to satisfy a hungry feeling even though physically, I don't need the food. D. Although I'm not physically hungry, I get a hungry feeling in my mouth that only seems to be satisfied when I eat a food, like sandwich, that fills my mouth. Sometimes, when I eat the food to satisfy my mouth hunger, I then spit the food out so I won't gain weight. Response Group 5: A Group 6 A. I don't feel any guilt or self-hate after I overeat. B. After I overeat, occasionally I feel guilt or self-hate. C. Almost all the time I experience strong guilt or self-hate after I overeat. Response Group 6: B Group 7 A. I don't lose total control of my eating when dieting even after periods when I overeat. B. Sometimes when I eat a forbidden food on a diet, I feel like I blew it and eat even more. C. Frequently, I have the habit of saying to myself, I've blown it now, why not go all the way, when I overeat on a diet. When that happens I eat more. D. I have a regular habit of starting a strict diets for myself but I break the diets by going on an eating binge. My life seems to be either a feast or famine. Response Group 7: D Group 8 A. I rarely eat so much food that I feel uncomfortably stuffed afterwards. B. Usually about once a month, I each such a quantity of food, I end up feeling very stuffed. C. I have regular periods during the month when I eat large amounts of food, either at mealtime or at snacks. D. I eat so much food that I regularly feel quite uncomfortable after eating and sometimes a bit nauseous. Response Group 8: A Group 9 A. My level of calorie intake does not go up very high or go down very low on a regular basis. B. Sometimes after I overeat, I will try to reduce my caloric intake to almost nothing to compensate for the excess calories I've eaten. C. I have a regular habit of overeating during the night. It seems that my routine is not to be hungry in the morning but overeat in the evening. D. In my adult years, I have had week-long periods where I practically starve myself. This follows periods when I overeat. It seems I live a life of either feast or famine. Response Group 9: C Group 10 A. I usually am able to stop eating when I want to. I know when enough is enough. B. Every so often, I experience a compulsion to eat which I can't seem to control. C. Frequently, I experience strong urges to eat which I seem unable to control, but at other times I can control my eating urges. D. I feel incapable of controlling urges to eat. I have a fear of not being able to stop eating voluntarily. Response Group 10: C Group 11 A. I don't have any problem stopping eating when I feel full. B. I usually can stop eating when I feel full but occasionally overeat leaving me feeling uncomfortably stuffed. C. I have a problem stopping eating once I start and usually I feel uncomfortably stuffed after I eat a meal. D. Because I have a problem not being able to stop eating when I want, I sometimes have to induce vomiting to relieve my stuffed feeling. Response Group 11: B Group 12 A. I seem to eat just as much when I'm with others, Family social gatherings as when I'm by myself. B. Sometimes, when I'm with other persons, I don't eat as much as I want to eat because I'm self-conscious about my eating. C. Frequently, I eat only a small amount of food when others are present, because I'm very embarrassed about my eating. D. I feel so ashamed about overeating that I pick times to overeat when I know no one will see me. I feel like a closet eater. Response Group 12: C Group 13 A. I eat three meals a day with only an occasional between meal snack. B. I eat 3 meals a day, but I also normally snack between meals. C. When I am snacking heavily, I get in the habit of skipping regular meals. D. There are regular periods when I seem to be continually eating, with no planned meals. Response Group 13: C Group 14 A. I don't think much about trying to control unwanted eating urges. B. At least some of the time, I feel my thoughts are pre-occupied with trying to control my eating urges. C. I feel that frequently I spend much time thinking about how much I ate or about trying not to eat anymore. D. It seems to me that most of my waking hours are pre-occupied by thoughts about eating or not eating. I feel like I'm constantly struggling not to eat. Response Group 14: B Group 15 A. I don't think about food a great deal. B. I have strong craving for food but they last only for brief periods of time. C. I have days when I can't seem to think about anything else but food. D. Most of my days seem to be pre-occupied with thoughts about food. I feel like I live to eat. Response Group 15: C Group 16 A. I usually know whether or not I'm physically hungry. I take the right portion of food to satisfy me. B. Occasionally, I feel uncertain about knowing whether or not I'm physically hungry. A these times it's hard to know how much food I should take to satisfy me. C. Even though I might know how many calories I should eat, I don't have any idea what is a normal amount of food for me. Response Group 16: C Binge Eating Score: 24 Score less than 17 Minimal Risk Score between 18-26 Moderate Risk Score between 27-46 High Risk Assessment & Plan Assessment & Plan (1) Adult ADHD: Code(s): F90.9 - Attention-deficit hyperactivity disorder, unspecified type (2) Anxiety disorder, unspecified: Code(s): F41.9 - Anxiety disorder, unspecified Plan PT will return in 2-3 weeks to complete assessment. Not cleared yet. PHQ-9 will be administered again before finishing assessment for accurate scores to present situation, and BES reviewed. Next lyndsay: 05/23/2024 at 8am, TH Telehealth Telehealth Telehealth Platform: [facility] Location of provider rendering services: other Location of patient: address on file Patient Identification confirmed using: Name, : Yes Telehealth method: voice only Patient verbally consented to treatment: Yes Patient verbally consented to billing insurance company: Yes Patient informed of any privacy concerns related to visit: Yes Minutes spent on Phone/Video with Pt.: 59 Coding Level of Care Code New Pt Tele Psy Diag Eval (60051) Patient Type New Diagnoses Adult ADHD F90.9 Anxiety disorder, unspecified F41.9 Time Spent (min) 59
== END ==
PROVIDERS: PCP Internal Medicine Geriatric Medicine; Visit Provider Counselor Mental Health
DX: F90.9 Attention-deficit hyperactivity disorder, unspecified type (principal); F41.9 Anxiety disorder, unspecified
CPT/HCPCS: 90791

== ENCOUNTER 2024-05-11 08:10 | Outpatient (REF) | payer OTHER, SELFPAY ==
--- NOTE | ~2024-05-11 | US_ITS ---
EXAMINATION: US COMPLETE ABDOMEN WITH LIVER ELASTOGRAPHY CLINICAL INFORMATION: Obesity, unspecified. COMPARISON: None available. TECHNIQUE: Real-time imaging of the abdominal viscera. Noninvasive ultrasound liver fibrosis assessment is performed using Nic ElastPQ point quantification shear wave elastography (pSWE) with a C5-2 MHz transducer. Multiple elastography samples are obtained. Exam submitted for review 05/25/2024 7:53 AM [employer]. FINDINGS: PANCREAS: The visualized pancreatic head and body are normal in appearance. The remainder of the pancreas is obscured from visualization by the overlying bowel gas. ABDOMINAL AORTA: No aortic aneurysm is seen. INFERIOR VENA CAVA: Visualized portions are normal. LIVER: Liver demonstrates diffusely increased echogenicity suggesting steatosis. No focal lesion identified. Normal contour. No intrahepatic biliary dilatation. The right lobe measures 16.3 cm in length. The left lobe measures 7.7 cm in length. Portal flow is hepatopedal. Shear wave liver elastography median stiffness is 1.25 m/s (reference: normal median stiffness is 1.3 m/s or less). IQR/median stiffness to assess sampling precision is 0.12 (reference: good quality data set is IQR/median stiffness of 0.15 or less). GALLBLADDER: Surgically absent. COMMON BILE DUCT: Normal in caliber measuring 0.5 cm in diameter. RIGHT KIDNEY: No hydronephrosis. No renal calculi or focal parenchymal lesions. The kidney measures 12.1 cm in maximum dimension. LEFT KIDNEY: No hydronephrosis. No renal calculi or focal parenchymal lesions. The kidney measures 11.0 cm in maximum dimension. SPLEEN: Borderline enlarged. The spleen measures 12.8 cm in maximum dimension. FREE FLUID: None seen. US/US abdomen comp w elastography IMPRESSION: 1. Echogenic liver suggesting steatosis. No focal lesion. 2. Liver elastography: Measurements are consistent with a high probability of normal liver stiffness. 3. Cholecystectomy. 4. Borderline enlarged spleen. REFERENCE: Society of Radiologists in Ultrasound Liver Stiffness Thresholds (2020): LIVER STIFFNESS THRESHOLDS: *Liver Stiffness equal or less than 1.3 m/s: High probability of being normal. *Liver Stiffness less than 1.7 m/s: In the absence of other known clinical signs, rules out compensated advanced chronic liver disease. *Liver Stiffness 1.7-2.1 m/s: Suggestive of compensated advanced chronic liver disease but need further test for confirmation. *Liver Stiffness over 2.1 m/s: Rules in compensated advanced chronic liver disease. *Liver Stiffness over 2.4 m/s: Suggestive of clinically significant portal hypertension. QUALITY OF DATA SET: *IQR/Median value equal or less than 0.15 implies a quality data set. *IQR/Median value over 0.15 implies a poor quality data set. SIGNIFICANT CHANGE FROM PRIOR EXAM: Significant change if liver stiffness measurement is 10% or greater from prior exam. OTHER CONSIDERATIONS: The stage of liver fibrosis may be overestimated in the setting of acute hepatitis, liver inflammation, elevated liver function tests, hepatic vascular congestion, obstructive cholestasis, non-fasting state, and infiltrative diseases such as amyloidosis and lymphoma. In some patients with NAFLD, the liver stiffness thresholds for compensated advanced chronic liver disease may be lower. In causes other than viral hepatitis and NAFLD, liver stiffness thresholds are not well established. Electronically signed by: Roc Gileltte MD 05/25/2024 08:53 AM [facility]
--- NOTE | 2024-05-11 09:06 | ECG_ITS ---
Test Reason : obesity Blood Pressure : / mmHG Vent. Rate : 064 BPM Atrial Rate : 064 BPM P-R Int : 152 ms QRS Dur : 082 ms QT Int : 406 ms P-R-T Axes : 030 047 015 degrees QTc Int : 418 ms Normal sinus rhythm Normal ECG When compared with ECG of 10-FEB-2023 12:38, No significant change was found Referred By: Juanito Philippe Electronically Signed By:WENDI BEE MD
[2024-05-11 09:16] LABS: MANUAL DIFF FLAG NO
[2024-05-11 09:42] LABS: Basophils Percent Auto 0.5 % (0-2); Eosinophils Absolute Auto 0.1 X10*3/uL (0.0-0.4); Eosinophils Percent Auto 2.2 % (0-4); Hematocrit 40.6 % (37.0-47.0); Hemoglobin 13.5 g/dl (12.0-16.0); Imm Gran Abs Auto 0.01 X10*3/uL (0.00-0.03); Imm Gran Pct Auto 0.2 % (0.0-0.4); Lymphocytes Absolute Auto 1.2 X10*3/uL (1.2-4.9); Lymphocytes Percent Auto 29.1 % (20-40); Mean Corpuscular HGB Conc 33.3 g/dl (31.0-35.0); Mean Corpuscular Hemoglobin 30.1 pg (27.0-33.0); Mean Corpuscular Volume 90.6 fL (80.0-98.0); Mean Platelet Volume 11.2 fL (9.4-12.3); Monocytes Absolute Auto 0.4 X10*3/uL (0.1-1.2); Monocytes Percent Auto 8.9 % (2-11); Neutrophils Absolute Auto 2.4 x10*3/uL (2.0-8.3); Neutrophils Percent Auto 59.1 % (45-73); Platelet Count 198 X10*3/uL (160-400); Red Blood Count 4.48 X10*6/uL (4.20-5.50); White Blood Count 4.1 X10*3/uL (4.8-10.8)
[2024-05-11 10:11] LABS: Alanine Aminotransferase 22 U/L (0-31); Albumin Level 4.3 g/dL (3.5-5.0); Alkaline Phosphatase 64 U/L (39-117); Anion Gap 12 (12-20); Aspartate Amino Transferase 18 U/L (5-31); Bilirubin Total 0.4 mg/dL (0.0-1.0); Blood Urea Nitrogen 16 mg/dL (9-16); C Reactive Protein 1.02 mg/dL (< or = 0.50); Calcium 8.6 mg/dL (8.4-10.2); Carbon Dioxide 27 mmol/L (22-29); Chloride 106 mmol/L (96-108); Cholesterol 194 mg/dL (<200); Estimated Glomerular Filt Rate > 60; Glucose Random 95 mg/dL (60-115); HDL Cholesterol 42 mg/dL (>40); Iron 43 mcg/dL (30-160); LDL Cholesterol Calculated 137 mg/dL (<100); Percent Iron Saturation 15 % (15-50); Potassium 4.2 mmol/L (3.3-5.1); Sodium 141 mmol/L (135-145); Total Iron Binding Capacity 296 mcg/dL (228-428); Total Protein 7.2 g/dL (6.5-8.0); Triglycerides 77 mg/dL (<150); Unsaturated Iron Binding 253 ug/dL
[2024-05-11 10:34] LABS: Ferritin 61 ng/mL (10-250); TSH reflex Free T4 2.57 uIU/mL (0.32-4.0); Vitamin D 25-OH Total 19.4 ng/mL (>30)
[2024-05-11 10:41] LABS: Folate 9.6 ng/mL (> or = 4.0); Vitamin B12 328 pg/mL (200-900)
[2024-05-11 11:22] LABS: Insulin 15 uU/mL (2-29)
[2024-05-11 12:07] LABS: Estimated Average Glucose 100 mg/dL; Hemoglobin A1C 153.6366 umol/L; Hemoglobin A1c % 5.1 % (<6.0); Total Hemoglobin (HGBA1C) 4826.0391 umol/L
[2024-05-13 20:24] LABS: Vitamin A 47 mcg/dL (38-98)
[2024-05-14 08:43] LABS: Zinc 96 mcg/dL (60-130)
[2024-05-15 14:09] LABS: Vitamin B1 8 nmol/L (8-30)
== END 2024-05-11 08:11 | disposition home or self-care (01) ==
LOC: HO.US 08:10
PROVIDERS: PCP Internal Medicine Geriatric Medicine; Visit Provider Surgery
DX: E66.9 Obesity, unspecified (principal); Z68.39 Body mass index [BMI] 39.0-39.9, adult; K21.9 Gastro-esophageal reflux disease without esophagitis; I10 Essential (primary) hypertension; F90.9 Attention-deficit hyperactivity disorder, unspecified type; F41.9 Anxiety disorder, unspecified
CPT/HCPCS: 36415; 76700; 76981; 80053; 80061; 82306; 82607; 82728; 82746; 83036; 83525; 83540; 84425; 84443; 84590; 84630; 85025; 86140; 93005

== ENCOUNTER → 2024-05-11 08:12 | Outpatient (BNV) | payer OTHER, SELFPAY | PROVIDERS: PCP Internal Medicine Geriatric Medicine; Visit Provider Radiology Diagnostic Radiology | DX: E66.9 Obesity, unspecified (principal); Z68.39 Body mass index [BMI] 39.0-39.9, adult | CPT/HCPCS: 76705; 76981 ==

== ENCOUNTER → 2024-05-11 09:06 | Outpatient (BNV) | payer OTHER, SELFPAY | PROVIDERS: PCP Internal Medicine Geriatric Medicine; Visit Provider Internal Medicine Cardiovascular Disease | DX: I10 Essential (primary) hypertension (principal) | CPT/HCPCS: 93010 ==

== ENCOUNTER 2024-05-23 08:00 | Outpatient (AMB) | payer OTHER, SELFPAY ==
--- NOTE | 2024-05-23 08:00 | A.OFFWM_ITS ---
Intake Intake Visit Reasons: VIDEO BH F/U Allergies erythromycin base Allergy (Severe, Verified 04/25/24 09:00) mouth sores amoxicillin Allergy (Verified 04/25/24 09:00) Rash codeine Adverse Reaction (Severe, Verified 04/25/24 09:00) Nausea and Vomiting [facility] Medical History (Updated 05/13/24 @ 12:56 by Juanito Philippe MD) GERD (gastroesophageal reflux disease) Anxiety ADHD Asthma BMI 39.0-39.9,adult Obesity delivery delivered Spondylosis, lumbosacral PTSD (post-traumatic stress disorder) Numbness of foot Neck pain, chronic Migraine headache Major depression in remission Lumbar radiculopathy HTN (hypertension) Generalized anxiety disorder Dizziness BERRY I (cervical intraepithelial neoplasia I) Chronic low back pain Cervical stenosis of spinal canal Bilateral hand numbness ADD (attention deficit disorder) Surgical History (Updated 03/11/23 @ 10:48 by ANABEL Boyer) History of tonsillectomy and adenoidectomy Hx of appendectomy History of colposcopy Hx of bilateral breast reduction surgery History of lumbar fusion History of tubal ligation Hx laparoscopic cholecystectomy Family History (Updated 04/10/24 @ 11:57 by Laila Bull CMA) Mother Heart attack Hypertension Obesity Father Heart attack Bipolar 1 disorder Daughter Kidney problem Spina bifida Son ADHD Daughter Anxiety Social History (Updated 04/10/24 @ 11:58 by Laila Bull CMA) Are you a primary ocular care aide to a significant other at home: Yes (daughter with spina bifida) Do you presently have visiting nurse or other home services: No Alcohol intake: never Comment: aware of trip hazard Patient Tobacco Use Status: Former Tobacco user Tobacco use type: Cigarette Second Hand Smoke Exposure: No Behavioral Health Assessment Weight Management Therapy Therapy Notes Details PT is a 43 years old Female, who presents for a second visit to complete BH assessment as part of surgical weight loss program. Presenting Concerns Referral Source WMP- Provider. Reason for referral Completion of behavioral health assessment as part of process for weight-loss surgery. Precipitating Event Obesity. Initial weight at weight check lyndsay 04/10/24 was 214 lbs. Living Situation Current Living Situation Rent Comments PT lives with her , 3 children and stepson. Food/Weight/Diet Expectations of change The initial Goal is to lose 10% of her weight before surgery, which is about 21 lbs. The ultimate weight goal is 193 Lbs before surgery. PT started on 04/20 at 214 lbs. Weight on 05/22/2024:207Lbs. PT is implementing the following: Current meal plan: 2 shakes, 2 bars, 1 meal (Dinner, 7F/7F) Exercise plan: 4 days a week. Stationary bicycle. History/Relationship with food Example of meals before starting the program: Breakfast: Lunch: Dinner: Snacks: Drinks/Liquids: History/Relationship with weight PT reports she was a healthy-weight kid, and very active. During her pregnancies she never gained too much, rather she lost weight always and she would be sick most during pregnancies. In the last 10 years, the patient's Lowest weight was 150 Lbs in 2018, and the highest was 218 lbs last year. History/Relationship with dieting Different diets, OTC diet pills. Self-diets. Social History Family history and relationship since 2020. They have been together for 10 years, and he's the father of her youngest. PT has 3 biological children and 2 adult stepchildren by . She also has other 7 children who are the kids of her ex-partner. PT has 2 brothers, they live close. The parents are alive but not together. Father lives close to her, and Mom lives in [place]. PT reports her family is very close. 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 Her youngest had kidney failure and is waiting for a transplant. Since 2020 living with them - Step-son is 28 Developmental history and status None. Currently diagnosed with adult ADHD in 2021 by her prescriber. Social support Mother and best friend. The is supportive but has his own challenges. Community support PCP, provider. Oriental Orthodox/Spirituality Jew but doesn't practice. Cultural/Ethnic information . Legal Involvement and History Current or historical involvement with the legal system? None reported. Education Highest grade completed HS. Currently enrolled in educational program? Yes (In her second year of college.) Interested in further educational program? No Educational Interests/Skills Enrolled in college. Wants to become a director school for blind. 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 ) and School Wants help to find employment? No Meaningful activities Read, terry, crafting. Financial Situation Describe current financial situation Comfortable and Occasional struggle Financial assistance? Food Meta and Disability (For . ) Service Service? Yes (. [employer] - out in 2007) Mental Health and Addiction Treatment Current/Past substance abuse? No Comments Alcohol: None. maybe once at year 1 drink. Cigarettes/Tobacco: quit in 2021 Cannabis/Edibles: in the past due to spinal issues. Nothing since 2021. Current/Past addictive behavior concerns? No Psychiatric history PT)reports a history of anxiety and panic attacks, which began in 2007 and were triggered by family events. PT has never participated in counseling as an adult but is considering it. She had therapy as a teenager following the of her brother from cancer. PT currently attends outpatient psychiatric services at [facility], where she sees Rosario Jones CNP. Current medications: Gabapentin 600mg for anxiety Dextroamphetamine 10mg, three times a day, for ADHD PT denies any history of mental health crises or inpatient admissions. There are no current concerns regarding suicidal ideation (SI), suicidal attempts (SA), self-harm, or harm to others. Medical and Physical Health Summary Additional Medical History not covered in history None reported Sexual History concerns None reported Physical exam in the last year? Yes Pain Screening Current pain? Yes Pain in the last few months? Yes Comments Back issues. Makes working out very difficult. Medications Is the patient compliant with medications? Yes Does the patient have Walker Guardian in place? Not applicable Does the patient use complimentary health approaches? No Trauma/Abuse History History of trauma? Yes Other Past (Witness brother's dealing with health conditions and then his . Also going trough challenges with her daughter. ) Questionnaires Binge Eating Scale Group 1 A. I don't feel self-conscious about my wt. or body size when I'm with others. B. I feel concerned about how I look to others, but it normally does not make me fell disappointed with myself C. I do get self-conscious about my appearance and wt. which makes me feel disappointed in myself. D. I feel very self-conscious about my wt. and frequently I feel intense shame and disgust for myself. I try to avoid social contacts because of my self- consciousness. Response Group 1: C Group 2 A. I don't have any difficulty eating slowly in the proper manner. B. Although I seem to gobble down foods, I don't end up feeling stuffed because of eating to much. C. At times, I tend to eat quickly and then, I feel uncomfortably full afterwards. D. I have the habit of bolting down my food, without really chewing it. When this happens I usually feel uncomfortably stuffed because I've eaten to much. Response Group 2: A Group 3 A. I feel capable to control my eating urges when I want to. B. I feel like I have failed to control my eating more than the average person. C. I feel utterly helpless when it comes to feeling in control of my eating urges. D. Because I feel so helpless about controlling my eating I have become very desperate about trying to get control. Response Group 3: D Group 4 A. I don't have the habit of eating when I'm bored. B. I sometimes eat when I'm bored, but often I'm able to get busy and get my mind off food. C. I have a regular habit of eating when I'm bored, but occasionally, I can use some other activity to get my mind off eating. D. I have a strong habit of eating when I'm bored. Nothing seems to help me breath the habit. Response Group 4: B Group 5 A. I'm usually physically hungry when I eat something. B. Occasionally, I eat something on impulse even though I really am not hungry. C. I have the regular habit of eating foods, that I might not really enjoy, to satisfy a hungry feeling even though physically, I don't need the food. D. Although I'm not physically hungry, I get a hungry feeling in my mouth that only seems to be satisfied when I eat a food, like sandwich, that fills my mouth. Sometimes, when I eat the food to satisfy my mouth hunger, I then spit the food out so I won't gain weight. Response Group 5: A Group 6 A. I don't feel any guilt or self-hate after I overeat. B. After I overeat, occasionally I feel guilt or self-hate. C. Almost all the time I experience strong guilt or self-hate after I overeat. Response Group 6: B Group 7 A. I don't lose total control of my eating when dieting even after periods when I overeat. B. Sometimes when I eat a forbidden food on a diet, I feel like I blew it and eat even more. C. Frequently, I have the habit of saying to myself, I've blown it now, why not go all the way, when I overeat on a diet. When that happens I eat more. D. I have a regular habit of starting a strict diets for myself but I break the diets by going on an eating binge. My life seems to be either a feast or famine. Response Group 7: D Group 8 A. I rarely eat so much food that I feel uncomfortably stuffed afterwards. B. Usually about once a month, I each such a quantity of food, I end up feeling very stuffed. C. I have regular periods during the month when I eat large amounts of food, either at mealtime or at snacks. D. I eat so much food that I regularly feel quite uncomfortable after eating and sometimes a bit nauseous. Response Group 8: A Group 9 A. My level of calorie intake does not go up very high or go down very low on a regular basis. B. Sometimes after I overeat, I will try to reduce my caloric intake to almost nothing to compensate for the excess calories I've eaten. C. I have a regular habit of overeating during the night. It seems that my routine is not to be hungry in the morning but overeat in the evening. D. In my adult years, I have had week-long periods where I practically starve myself. This follows periods when I overeat. It seems I live a life of either feast or famine. Response Group 9: C Group 10 A. I usually am able to stop eating when I want to. I know when enough is enough. B. Every so often, I experience a compulsion to eat which I can't seem to control. C. Frequently, I experience strong urges to eat which I seem unable to control, but at other times I can control my eating urges. D. I feel incapable of controlling urges to eat. I have a fear of not being able to stop eating voluntarily. Response Group 10: C Group 11 A. I don't have any problem stopping eating when I feel full. B. I usually can stop eating when I feel full but occasionally overeat leaving me feeling uncomfortably stuffed. C. I have a problem stopping eating once I start and usually I feel uncomfortably stuffed after I eat a meal. D. Because I have a problem not being able to stop eating when I want, I sometimes have to induce vomiting to relieve my stuffed feeling. Response Group 11: B Group 12 A. I seem to eat just as much when I'm with others, Family social gatherings as when I'm by myself. B. Sometimes, when I'm with other persons, I don't eat as much as I want to eat because I'm self-conscious about my eating. C. Frequently, I eat only a small amount of food when others are present, because I'm very embarrassed about my eating. D. I feel so ashamed about overeating that I pick times to overeat when I know no one will see me. I feel like a closet eater. Response Group 12: C Group 13 A. I eat three meals a day with only an occasional between meal snack. B. I eat 3 meals a day, but I also normally snack between meals. C. When I am snacking heavily, I get in the habit of skipping regular meals. D. There are regular periods when I seem to be continually eating, with no planned meals. Response Group 13: C Group 14 A. I don't think much about trying to control unwanted eating urges. B. At least some of the time, I feel my thoughts are pre-occupied with trying to control my eating urges. C. I feel that frequently I spend much time thinking about how much I ate or about trying not to eat anymore. D. It seems to me that most of my waking hours are pre-occupied by thoughts about eating or not eating. I feel like I'm constantly struggling not to eat. Response Group 14: B Group 15 A. I don't think about food a great deal. B. I have strong craving for food but they last only for brief periods of time. C. I have days when I can't seem to think about anything else but food. D. Most of my days seem to be pre-occupied with thoughts about food. I feel like I live to eat. Response Group 15: C Group 16 A. I usually know whether or not I'm physically hungry. I take the right portion of food to satisfy me. B. Occasionally, I feel uncertain about knowing whether or not I'm physically hungry. A these times it's hard to know how much food I should take to satisfy me. C. Even though I might know how many calories I should eat, I don't have any idea what is a normal amount of food for me. Response Group 16: C Binge Eating Score: 24 Score less than 17 Minimal Risk Score between 18-26 Moderate Risk Score between 27-46 High Risk Assessment & Plan Assessment & Plan (1) Adult ADHD: Code(s): F90.9 - Attention-deficit hyperactivity disorder, unspecified type (2) PTSD (post-traumatic stress disorder): Code(s): F43.10 - Post-traumatic stress disorder, unspecified Plan PT will return in 2-3 weeks to complete the assessment. The PHQ-9 will be administered, and additional sections of the food/weight/diet assessment will be completed at that time. Next appointment: 06/04/2024 at 9:00 AM, TH. Telehealth Telehealth [facility] Location of provider rendering services: other Location of patient: address on file Patient Identification confirmed using: Name, : Yes Telehealth method: voice only Patient verbally consented to treatment: Yes Patient verbally consented to billing insurance company: Yes Patient informed of any privacy concerns related to visit: Yes Minutes spent on Phone/Video with Pt.: 45 Coding Level of Care Code Established Pt Tele Psytx 45 mins ([id number]) Patient Type Established Diagnoses Adult ADHD F90.9 PTSD (post-traumatic stress disorder) F43.10 Time Spent (min) 45
== END 2024-05-23 09:15 | disposition home or self-care (01) ==
LOC: HO.HBST 08:37
PROVIDERS: PCP Internal Medicine Geriatric Medicine; Visit Provider Counselor Mental Health
DX: F90.9 Attention-deficit hyperactivity disorder, unspecified type (principal); F43.10 Post-traumatic stress disorder, unspecified
CPT/HCPCS: 90834

== ENCOUNTER → 2024-06-20 09:14 | Outpatient (AMB) | payer OTHER, SELFPAY ==
--- NOTE | 2024-06-20 09:05 | MHC.WMTHER ---
Intake Intake Visit Reasons: VIDEO F/U Allergies erythromycin base Allergy (Severe, Verified 04/25/24 09:00) mouth sores amoxicillin Allergy (Verified 04/25/24 09:00) Rash codeine Adverse Reaction (Severe, Verified 04/25/24 09:00) Nausea and Vomiting [facility] Medical History (Updated 05/13/24 @ 12:56 by Juanito Philippe MD) GERD (gastroesophageal reflux disease) Anxiety ADHD Asthma BMI 39.0-39.9,adult Obesity delivery delivered Spondylosis, lumbosacral PTSD (post-traumatic stress disorder) Numbness of foot Neck pain, chronic Migraine headache Major depression in remission Lumbar radiculopathy HTN (hypertension) Generalized anxiety disorder Dizziness BERRY I (cervical intraepithelial neoplasia I) Chronic low back pain Cervical stenosis of spinal canal Bilateral hand numbness ADD (attention deficit disorder) Surgical History (Updated 03/11/23 @ 10:48 by ANABEL Boyer) History of tonsillectomy and adenoidectomy Hx of appendectomy History of colposcopy Hx of bilateral breast reduction surgery History of lumbar fusion History of tubal ligation Hx laparoscopic cholecystectomy Family History (Updated 04/10/24 @ 11:57 by Laila Bull CMA) Mother Heart attack Hypertension Obesity Father Heart attack Bipolar 1 disorder Daughter Kidney problem Spina bifida Son ADHD Daughter Anxiety Social History (Updated 04/10/24 @ 11:58 by Laila Bull CMA) Are you a primary animal caregiver to a significant other at home: Yes (daughter with spina bifida) Do you presently have visiting nurse or other home services: No Alcohol intake: never Comment: aware of trip hazard Patient Tobacco Use Status: Former Tobacco user Tobacco use type: Cigarette Second Hand Smoke Exposure: No Behavioral Health Assessment Weight Management Therapy Therapy Notes Details The patient is a 43-year-old female who presents for a follow-up visit to complete the behavioral health (BH) assessment as part of the surgical weight loss program. The patient reports that her primary motivation for pursuing weight-loss surgery is to improve her health and, in the snf, become a donor for her daughter, who is in need of a kidney transplant. Her children are her biggest motivators, as she wants to feel physically well enough to keep up with their busy lifestyle. The patient has a history of anxiety and panic attacks, which began in 2007 and were triggered by family events. She has never participated in counseling as an adult but is considering it. As a teenager, she attended therapy following the of her brother from cancer. Currently, she receives outpatient psychiatric services at [facility], where she sees Rosario Jones CNP. She is prescribed Gabapentin 600 mg for anxiety and Dextroamphetamine 10 mg, three times a day, for ADHD. The patient denies any history of mental health crises or inpatient admissions. There are no current concerns regarding suicidal ideation (SI), suicidal attempts (SA), self-harm, or harm to others. Additionally, there is no history of substance use. There is no evidence of stress or emotional eating, and the patient's BES scores were not concerning. The PHQ scores also did not indicate active symptoms of depression. The mental status exam is within normal limits, suggesting that the patient?s functioning is not impaired. The patient is aware of potential financial challenges and has already arranged support for her post-op recovery, with assistance from her partner and mother. She has noticed significant changes in her decision-making regarding food and feels more accountable for her physical activity and exercise goals. During today?s session, we discussed strategies to plan meals and exercise for the week and reviewed her readiness for surgery. The patient has been cleared and is scheduled to return 1-2 weeks post-op for continued support. Presenting Concerns Referral Source WMP- Provider. Reason for referral Completion of behavioral health assessment as part of process for weight-loss surgery. Precipitating Event Obesity. Initial weight at weight check lyndsay 04/10/24 was 214 lbs. Living Situation Current Living Situation Rent Comments PT lives with her , 3 children and stepson. Food/Weight/Diet Expectations of change The initial Goal is to lose 10% of her weight before surgery, which is about 21 lbs. The ultimate weight goal is 193 Lbs before surgery. PT started on 04/20 at 214 lbs. Weight on 05/22/2024:207Lbs. Most recent weight as of 06/16/2024: 203Lbs PT is implementing the following: Current meal plan: 2 shakes, 2 bars, 1 meal (Dinner, 7F/7F) Exercise plan: 4 days a week. Stationary bicycle. History/Relationship with food PT denies any emotional/stress eating. When stressed she feels stomach upsetting At times due to financial issues, they pick cheap options like pasta, potatoes, etc. while in the she was trained to eat fast, and this stuck with her. Example of meals before starting the program: Breakfast: Skip- only morning coffee Lunch: any fast food if on the road like [employer] or [employer]way. If at home, a sandwich, a salad or leftovers from the night before. Dinner: Cook a lot of combinations with pasta or potatoes. For example pasta with meatballs, mashed potatoes with any meat. They also have a vegetable side with all meals; they use canned or frozen. Snacks: not daily, but would do anything available like yogurt, chips, cookies, etc. Drinks/Liquids: Morning coffee with milk and 2 small spoonful of sugar, infused water or water, sometimes adds honey to it. 1-2 sodas at month as sge gets bad heartburn from it. History/Relationship with weight PT reports she was a healthy-weight kid, and very active. However since developing spine issues she has been unable to workout regular and has been less active in general due to pain During her pregnancies she never gained too much, rather she lost weight always and she would be sick most during pregnancies. In the last 10 years, the patient's Lowest weight was 150 Lbs in 2018, and the highest was 218 lbs last year. On the other hand PT manages high stress impacting her sleep schedule and appetite. History/Relationship with dieting Different diets, OTC diet pills. Self-diets. Binge Eating Do you frequently eat large amounts of food in short periods of time, not feeling physically hungry? No Do you feel out of control when you eat a large amount of food in a short period of time? No Do you eat large amounts of food rapidly and typically alone? No Night Eating Do you wake up at least once during the night to eat? Yes If you wake up in the night, do you find that it is necessary to eat something in order to fall back asleep? No Do you have little or no appetite in the morning and feel very hungry in the evening, often overeating between dinner and when you go to bed? No Social History Family history and relationship since 2020. They have been together for 10 years, and he's the father of her youngest. PT has 3 biological children and 2 adult stepchildren by . She also has other 7 children who are the kids of her ex-partner. PT has 2 brothers, they live close. The parents are alive but not together. Father lives close to her, and Mom lives in [place]. PT reports her family is very close. 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 Her youngest had kidney failure and is waiting for a transplant. Since 2020 living with them - Step-son is 28 Developmental history and status None. Currently diagnosed with adult ADHD in 2021 by her prescriber. Social support Mother and best friend. The is supportive but has his own challenges. Community support PCP, provider. Scientology/Spirituality Hoahaoism but doesn't practice. Cultural/Ethnic information . Legal Involvement and History Current or historical involvement with the legal system? None reported. Education Highest grade completed HS. Currently enrolled in educational program? Yes (In her second year of college.) Interested in further educational program? No Educational Interests/Skills Enrolled in college. Wants to become a elementary school teacher's aide. 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 No Meaningful activities Read, terry, crafting. Financial Situation Describe current financial situation Comfortable and Occasional struggle Financial assistance? Food [place] and Disability (For . ) Service Service? Yes (. [employer] - out in 2007) Mental Health and Addiction Treatment Current/Past substance abuse? No Comments Alcohol: None. maybe once at year 1 drink. Cigarettes/Tobacco: quit in 2021 Cannabis/Edibles: in the past due to spinal issues. Nothing since 2021. Current/Past addictive behavior concerns? No Psychiatric history PT reports a history of anxiety and panic attacks, which began in 2007 and were triggered by family events. PT has never participated in counseling as an adult but is considering it. She had therapy as a teenager following the of her brother from cancer. PT currently attends outpatient psychiatric services at [facility], where she sees Rosario Jones, APARNA. Current medications: Gabapentin 600mg for anxiety Dextroamphetamine 10mg, three times a day, for ADHD PT denies any history of mental health crises or inpatient admissions. There are no current concerns regarding suicidal ideation (SI), suicidal attempts (SA), self-harm, or harm to others. Medical and Physical Health Summary Additional Medical History not covered in history None reported Sexual History concerns None reported Physical exam in the last year? Yes Pain Screening Current pain? Yes Pain in the last few months? Yes Comments Back issues. Makes working out very difficult. Medications Is the patient compliant with medications? Yes Does the patient have Walker Guardian in place? Not applicable Does the patient use complimentary health approaches? No Trauma/Abuse History History of trauma? Yes Other Past (Witness brother's dealing with health conditions and then his . Also going trough challenges with her daughter. ) Questionnaires PHQ-9 Over the last 2 weeks, how often have you been bothered by any of the following problems? 1. Little interest or pleasure in doing things: not at all 2. Feeling down, depressed, or hopeless: several days 3. Trouble falling or staying asleep, or sleeping too much: several days (Trouble falling and staying asleep, att times due to pain.) 4. Feeling tired or having little energy: several days (tired but not in a -way) 5. Poor appetite or overeating: not at all 6. Feeling bad about yourself - or that you are a failure or have let yourself or your family down: several days 7. Trouble concentrating on things, such as reading the newspaper or watching television: not at all 8. Moving or speaking so slowly that other people could have noticed. Or the opposite - being so fidgety or restless that you have been moving around a lot more than usual: not at all 9. Thoughts that you would be better off or of hurting yourself in some way: not at all Total score: 4 Depression Screening Interpretation: Negative Depression Screening Done: Yes 82151 - PHQ-9 Billing: Yes Source: Developed by Drs. Reji Jimenez, Yaritza Hagen, Socrates Conley and colleagues, with an educational mariya from [employer]. Binge Eating Scale Group 1 A. I don't feel self-conscious about my wt. or body size when I'm with others. B. I feel concerned about how I look to others, but it normally does not make me fell disappointed with myself C. I do get self-conscious about my appearance and wt. which makes me feel disappointed in myself. D. I feel very self-conscious about my wt. and frequently I feel intense shame and disgust for myself. I try to avoid social contacts because of my self-consciousness. Response Group 1: C Group 2 A. I don't have any difficulty eating slowly in the proper manner. B. Although I seem to gobble down foods, I don't end up feeling stuffed because of eating to much. C. At times, I tend to eat quickly and then, I feel uncomfortably full afterwards. D. I have the habit of bolting down my food, without really chewing it. When this happens I usually feel uncomfortably stuffed because I've eaten to much. Response Group 2: A Group 3 A. I feel capable to control my eating urges when I want to. B. I feel like I have failed to control my eating more than the average person. C. I feel utterly helpless when it comes to feeling in control of my eating urges. D. Because I feel so helpless about controlling my eating I have become very desperate about trying to get control. Response Group 3: D Group 4 A. I don't have the habit of eating when I'm bored. B. I sometimes eat when I'm bored, but often I'm able to get busy and get my mind off food. C. I have a regular habit of eating when I'm bored, but occasionally, I can use some other activity to get my mind off eating. D. I have a strong habit of eating when I'm bored. Nothing seems to help me breath the habit. Response Group 4: B Group 5 A. I'm usually physically hungry when I eat something. B. Occasionally, I eat something on impulse even though I really am not hungry. C. I have the regular habit of eating foods, that I might not really enjoy, to satisfy a hungry feeling even though physically, I don't need the food. D. Although I'm not physically hungry, I get a hungry feeling in my mouth that only seems to be satisfied when I eat a food, like sandwich, that fills my mouth. Sometimes, when I eat the food to satisfy my mouth hunger, I then spit the food out so I won't gain weight. Response Group 5: A Group 6 A. I don't feel any guilt or self-hate after I overeat. B. After I overeat, occasionally I feel guilt or self-hate. C. Almost all the time I experience strong guilt or self-hate after I overeat. Response Group 6: B Group 7 A. I don't lose total control of my eating when dieting even after periods when I overeat. B. Sometimes when I eat a forbidden food on a diet, I feel like I blew it and eat even more. C. Frequently, I have the habit of saying to myself, I've blown it now, why not go all the way, when I overeat on a diet. When that happens I eat more. D. I have a regular habit of starting a strict diets for myself but I break the diets by going on an eating binge. My life seems to be either a feast or famine. Response Group 7: D Group 8 A. I rarely eat so much food that I feel uncomfortably stuffed afterwards. B. Usually about once a month, I each such a quantity of food, I end up feeling very stuffed. C. I have regular periods during the month when I eat large amounts of food, either at mealtime or at snacks. D. I eat so much food that I regularly feel quite uncomfortable after eating and sometimes a bit nauseous. Response Group 8: A Group 9 A. My level of calorie intake does not go up very high or go down very low on a regular basis. B. Sometimes after I overeat, I will try to reduce my caloric intake to almost nothing to compensate for the excess calories I've eaten. C. I have a regular habit of overeating during the night. It seems that my routine is not to be hungry in the morning but overeat in the evening. D. In my adult years, I have had week-long periods where I practically starve myself. This follows periods when I overeat. It seems I live a life of either feast or famine. Response Group 9: C Group 10 A. I usually am able to stop eating when I want to. I know when enough is enough. B. Every so often, I experience a compulsion to eat which I can't seem to control. C. Frequently, I experience strong urges to eat which I seem unable to control, but at other times I can control my eating urges. D. I feel incapable of controlling urges to eat. I have a fear of not being able to stop eating voluntarily. Response Group 10: C Group 11 A. I don't have any problem stopping eating when I feel full. B. I usually can stop eating when I feel full but occasionally overeat leaving me feeling uncomfortably stuffed. C. I have a problem stopping eating once I start and usually I feel uncomfortably stuffed after I eat a meal. D. Because I have a problem not being able to stop eating when I want, I sometimes have to induce vomiting to relieve my stuffed feeling. Response Group 11: B Group 12 A. I seem to eat just as much when I'm with others, Family social gatherings as when I'm by myself. B. Sometimes, when I'm with other persons, I don't eat as much as I want to eat because I'm self-conscious about my eating. C. Frequently, I eat only a small amount of food when others are present, because I'm very embarrassed about my eating. D. I feel so ashamed about overeating that I pick times to overeat when I know no one will see me. I feel like a closet eater. Response Group 12: C Group 13 A. I eat three meals a day with only an occasional between meal snack. B. I eat 3 meals a day, but I also normally snack between meals. C. When I am snacking heavily, I get in the habit of skipping regular meals. D. There are regular periods when I seem to be continually eating, with no planned meals. Response Group 13: C Group 14 A. I don't think much about trying to control unwanted eating urges. B. At least some of the time, I feel my thoughts are pre-occupied with trying to control my eating urges. C. I feel that frequently I spend much time thinking about how much I ate or about trying not to eat anymore. D. It seems to me that most of my waking hours are pre-occupied by thoughts about eating or not eating. I feel like I'm constantly struggling not to eat. Response Group 14: B Group 15 A. I don't think about food a great deal. B. I have strong craving for food but they last only for brief periods of time. C. I have days when I can't seem to think about anything else but food. D. Most of my days seem to be pre-occupied with thoughts about food. I feel like I live to eat. Response Group 15: C Group 16 A. I usually know whether or not I'm physically hungry. I take the right portion of food to satisfy me. B. Occasionally, I feel uncertain about knowing whether or not I'm physically hungry. A these times it's hard to know how much food I should take to satisfy me. C. Even though I might know how many calories I should eat, I don't have any idea what is a normal amount of food for me. Response Group 16: C Binge Eating Score: 24 Score less than 17 Minimal Risk Score between 18-26 Moderate Risk Score between 27-46 High Risk Assessment & Plan Assessment & Plan (1) Adult ADHD: Code(s): F90.9 - Attention-deficit hyperactivity disorder, unspecified type (2) PTSD (post-traumatic stress disorder): Code(s): F43.10 - Post-traumatic stress disorder, unspecified Plan The patient has been cleared from Bh standpoint and is scheduled to return 1-2 weeks post-op for continued support. Next lyndsay: 1-2 wks Telehealth Telehealth Telehealth [facility]: [facility] Location of provider rendering services: other Location of patient: address on file Patient Identification confirmed using: Name, : Yes Telehealth method: video Patient verbally consented to treatment: Yes Patient verbally consented to billing insurance company: Yes Patient informed of any privacy concerns related to visit: Yes Minutes spent on Phone/Video with Pt.: 55 Coding Level of Care Code Established Pt Tele Psytx >53 mins (29896) Patient Type Established Diagnoses Adult ADHD F90.9 PTSD (post-traumatic stress disorder) F43.10 Additional Codes PHQ-9 - 63823 - PHQ-9 Billing: Yes ([id number]) Time Spent (min) 55
--- OUTSIDE RECORDS SUMMARY | 2024-06-20 09:35 | XMS_ITS | Clinical Summary ---
Author Organization [facility] lin Address [address] [facility] [place] [address] Care Team Providers Care Gyroscopic Instrument Tester Name Role Phone Pcp, No Primary Care Provider [phone] Social History Tobacco Use Types Packs/Day Years Used Date Smoking Tobacco: Never Assessed Comments Unknown Sex and Gender Information Value Date Recorded Sex Assigned at Not on file Legal Sex Female 3:10 PM EDT Gender Identity Not on file Sexual Orientation Not on file Plan of Treatment Health Maintenance Due Date Last Done Comments Depression: Screening Annual ly using PHQ-2/9 in Adults 18 yrs or above (or HM Modifier)([facility]) 2000 Hepatitis C Virus Infection in Adolescents and Adults: Screening (or Modifier) ([facility]) 2000 SDCA Screening Reminder: Kourtney rueda for all adults ([facility]) 2000 Tobacco Smoking Cessation: i n Adults excluding Women: Behavioral and Pharmacotherapy Interventions ([facility]) 2000 DTaP/Tdap/Td Vaccines ([facility]) (1 - Tdap) 2001 Lipid Screening: Once for Wo men aged 20 to 45 yrs ([facility]) 2002 Cervical Cancer Screenin 1-65 yrs of age (or Modifier) 11/15/2003 Cervical Cancer Screening: P ap every 3 yrs pts age 21-65 11/15/2003 Cervical Cancer: Pap Screeni ng with Modifier timing ([facility]) 11/15/2003 Cervical Cancer: hrHPV alone or with cotesting Pap for Pts 30-65yrs screening every 5yrs ([facility]) 11/15/2003 Flu Vaccination: Yearly for ages 18mos through 64 years (or Modifier)([facility]) 12/15/2023 COVID-19 Vaccine Screening: Initial Series and Booster Status ([facility]) (2023- season) 2024 Zoster/Shingles Vaccine Seri es Screening: Adults aged 18+ yrs (or HM Modifiers)([facility]) (1 of 2) 2032 Pneumococcal Vaccination Scr eening: Pts 0-19 & 19-64 yrs of age ([facility]) Aged Out No longer eligible based on patient's age to complete this topic Medical Devices Not on file Insurance [facility] Care Teams Gyroscopic Instrument Tester Relationship Specialty Start Date End Date Pcp, No PCP - General Family Medicine 04/22/21
== END ==
PROVIDERS: PCP Internal Medicine Geriatric Medicine; Visit Provider Counselor Mental Health
DX: F90.9 Attention-deficit hyperactivity disorder, unspecified type (principal); F43.10 Post-traumatic stress disorder, unspecified
CPT/HCPCS: 90837

== ENCOUNTER → 2024-06-20 09:14 | Outpatient (BNVA) | payer OTHER, SELFPAY | PROVIDERS: PCP Internal Medicine Geriatric Medicine; Visit Provider Counselor Mental Health | DX: M54.12 Radiculopathy, cervical region (principal) | CPT/HCPCS: 99212 ==

== ENCOUNTER 2024-07-13 08:07 | Outpatient (REF) | payer OTHER, SELFPAY ==
--- NOTE | ~2024-07-13 | XR_ITS ---
CLINICAL HISTORY: E66.9 - Obesity, unspecified 2 view chest x-ray. Comparison: None Findings: Normal lung volumes. Lungs are clear. No pneumothorax or pleural effusion. Heart size normal. No passive venous congestion. No midline shift or tracheal deviation. No acute fracture. Discectomy lower cervical vertebra Impression: 1. No acute cardiopulmonary disease. This document has been electronically signed by: Paul Funk MD on 07/13/2024 12:43:28
--- NOTE | ~2024-07-13 | FL_ITS ---
EXAMINATION: XR FLUOROSCOPY UPPER GI WITH AIR CLINICAL INFORMATION: Doppler evaluation prior to bariatric surgery COMPARISON: None TECHNIQUE: Fluoroscopic air contrast upper GI examination was performed utilizing standard techniques with thin and thick barium and effervescent granules. Numerous spot images were obtained. FINDINGS: ACDF noted at C6-C7. Dual and single contrast images of the esophagus demonstrate normal caliber, contour, and mucosal pattern. No masses or ulcerations are seen. Esophageal peristalsis was normal. A nonobstructing Schatzki's ring is present. A small type I hiatal hernia is present. Mild gastroesophageal reflux is seen in the distal esophagus. Dual contrast and single contrast images of the stomach demonstrated a normal contour. There is a focal area of contrast pooling within the hiatal hernia that is suspicious for a mucosal ulceration. No masses are seen. Contrast freely passed into the gastric antrum and duodenal bulb without delay. Single and air-contrast images of the duodenal bulb demonstrate no abnormality. The duodenal sweep has a normal appearance, course, and mucosal fold appearance. The imaged proximal jejunum has a normal fold pattern and caliber. FLUOROSCOPY TIME: 2 minutes 30 seconds Number of Spot Images: 8 Number of Cine: 11 DOSE AREA PRODUCT: [id number] uGy-m2 (microgray-meter squared) FL/FL upper GI w air IMPRESSION: 1. Nonobstructing Schatzki's ring. 2. Small type I hiatal hernia with mild gastroesophageal reflux. 3. Small focal area of contrast pooling in the hiatal hernia that is suspicious for a mucosal ulceration. Recommend correlation with EGD. 4. Status post ACDF at C6-C7. This procedure was performed by Yves Giles PA-C, and supervised by Dr. Gillette Electronically signed by: Roc Gillette MD 07/13/2024 05:09 PM [facility]
--- OUTSIDE RECORDS SUMMARY | 2024-07-13 08:15 | XMS_ITS | Clinical Summary ---
Author Organization [facility] lin Address [address] [place] [address] Care Team Providers Care Client Customer Manager Name Role Phone Pcp, No Primary Care Provider [phone] Social History Tobacco Use Types Packs/Day Years [...] Adults 18 yrs or above (or HM Modifier)([facility]) 2000 Hepatitis C Virus Infection in Adolescents and Adults: Screening (or Modifier) ([facility]) 2000 SDOH Screening Reminder: Kourtney rueda for all adults ([facility]) 2000 Tobacco Smoking Cessation: i n Adults excluding Women: Behavioral and Pharmacotherapy Interventions ([facility]) 2000 DTaP/Tdap/Td Vaccines ([facility]) (1 - Tdap) 2001 Lipid Screening: Once for [place] men aged 20 to 45 yrs ([facility]) 2002 Cervical Cancer Screenin 1-65 yrs of age (or Modifier) 11/15/2003 Cervical Cancer Screening: P ap every 3 yrs pts age 21-65 11/15/2003 Cervical Cancer: Pap Screeni ng with Modifier timing ([facility]) 11/15/2003 Cervical Cancer: hrHPV alone or with cotesting Pap for Pts 30-65yrs screening every 5yrs ([facility]) 11/15/2003 Flu Vaccination: Yearly for ages 18mos through 64 years (or Modifier)([facility]) 12/15/2023 COVID-19 Vaccine Screening: Initial Series and Booster Status ([facility]) (2023-25 season) 2024 Zoster/Shingles Vaccine Seri es Screening: Adults aged 18+ yrs (or HM Modifiers)([facility]) (1 of 2) 2032 Pneumococcal Vaccination Scr eening: Pts 0-19 & 19-64 yrs of age ([facility]) Aged Out No longer eligible based on patient's age to complete this topic Medical Devices Not on file Insurance [facility] Care Teams Client Customer Manager Relationship Specialty Start Date End Date Pcp, No PCP - General Family Medicine 04/22/21
== END 2024-07-13 08:08 | disposition home or self-care (01) ==
LOC: HO.XRAY 08:07
PROVIDERS: PCP Internal Medicine Geriatric Medicine; Visit Provider Surgery
DX: E66.9 Obesity, unspecified (principal); Z68.39 Body mass index [BMI] 39.0-39.9, adult; K21.9 Gastro-esophageal reflux disease without esophagitis; I10 Essential (primary) hypertension; F90.9 Attention-deficit hyperactivity disorder, unspecified type; F41.9 Anxiety disorder, unspecified
CPT/HCPCS: 71046; 74246

== ENCOUNTER → 2024-07-13 08:08 | Outpatient (BNV) | payer MEDICAID, SELFPAY | PROVIDERS: PCP Internal Medicine Geriatric Medicine; Visit Provider Radiology Diagnostic Radiology | DX: K21.9 Gastro-esophageal reflux disease without esophagitis (principal) | CPT/HCPCS: 71046; 74246 ==

== ENCOUNTER 2024-09-12 09:43 | Outpatient (REF) | payer OTHER, SELFPAY ==
--- NOTE | 2024-09-12 09:45 | EMG_ITS ---
Chief complaint: C6-7 ACDF February 2023. Symptoms improved and was doing well up until April 2024. Started noticing paresthesias bilateral hands, left worse than right. Reason for referral: Evaluate for Carpal Tunnel Syndrome versus radiculopathy Referred by: Brennon LITTLE Procedure done: Bilateral upper extremities NCS/EMG Precautions and/or limitations: Previous cervical fusion The limb temperature was monitored continuously and remained between 32-36 degrees C during the performance of the NCS. Nerve Conduction Studies Anti Sensory Summary Table ?Stim Site NR Onset (ms) Norm Onset (ms) Peak (ms) Norm Peak (ms) O-P Amp (?V) Norm O-P Amp Site1 Site2 Delta-0 (ms) Dist (cm) Amari (m/s) Norm Amari (m/s) Left Median Anti Sensory (2nd Digit) Wrist ? 3.0 3.7 <3.6 11.3 >10 Wrist 2nd Digit 3.0 14.0 47 Right Median Anti Sensory (2nd Digit) Wrist ? 2.5 3.0 <3.6 26.7 >10 Wrist 2nd Digit 2.5 14.0 56 Left Ulnar Anti Sensory (5th Digit) Wrist ? 2.3 2.8 <3.7 16.9 >15.0 Wrist 5th Digit 2.3 14.0 61 Right Ulnar Anti Sensory (5th Digit) Wrist ? 2.2 2.8 <3.7 29.4 >15.0 Wrist 5th Digit 2.2 14.0 64 Motor Summary Table ?Stim Site NR Onset (ms) Norm Onset (ms) O-P Amp (mV) Norm O-P Amp iAmp (mV) Amp (1st) (%) Site1 Site2 Delta-0 (ms) Dist (cm) Amari (m/s) Norm Amari (m/s) Left Median Motor (Abd Poll Brev) Wrist ? 3.8 <3.9 12.6 >4.5 16.0 100.0 Elbow Wrist 3.4 20.0 59 >45 Elbow ? 7.2 12.0 15.2 95.2 Right Median Motor (Abd Poll Brev) Wrist ? 3.0 <3.9 6.5 >4.5 8.4 100.0 Elbow Wrist 3.3 18.0 55 >45 Elbow ? 6.3 16.1 20.3 247.7 Left Ulnar Motor (Abd Dig Minimi) Wrist ? 2.4 <3.0 7.6 >5 9.0 100.0 B Elbow Wrist 2.7 16.0 59 >45 B Elbow ? 5.1 7.4 9.1 97.4 A Elbow B Elbow 1.7 10.0 59 >45 A Elbow ? 6.8 7.4 9.2 97.4 Right Ulnar Motor (Abd Dig Minimi) Wrist ? 2.3 <3.0 9.4 >5 10.9 100.0 B Elbow Wrist 2.9 17.0 59 >45 B Elbow ? 5.2 8.7 10.1 92.6 A Elbow B Elbow 1.4 10.0 71 >45 A Elbow ? 6.6 8.5 9.8 90.4 Comparison Summary Table ?Stim Site NR Peak (ms) Norm Peak (ms) P-T Amp (?V) Site1 Site2 Delta-P (ms) Norm Delta (ms) Left Median/Radial Dig I Comparison (Digit 1 - 10cm) Median ? 3.0 <2.9 1105.8 Median Radial 0.8 Radial ? 2.2 <2.8 16.5 Right Median/Radial Dig I Comparison (Digit 1 - 10cm) Median ? 2.4 <2.9 91.2 Median Radial 0.3 Radial ? 2.1 <2.8 19.1 EMG ?Side Muscle Nerve Root Ins Act Fibs Psw Amp Dur Poly Recrt Int Pat Comment Right 1stDorInt Ulnar C8-T1 Nml Nml Nml Nml Nml 0 Nml Complete Right FlexCarRad Median C6-7 Nml Nml Nml Nml Nml 0 Nml Complete Right Biceps Musculocut C5-6 Nml Nml Nml Nml Nml 0 Nml Complete Right Triceps Radial C6-7-8 Nml Nml Nml Nml Nml 0 Nml Complete Right Deltoid Axillary C5-6 Nml Nml Nml Nml Nml 0 Nml Complete Left 1stDorInt Ulnar C8-T1 Nml Nml Nml Nml Nml 0 Nml Complete Left FlexCarRad Median C6-7 Nml Nml Nml Nml Nml 0 Nml Complete Left Biceps Musculocut C5-6 Nml Nml Nml Nml Nml 0 Nml Complete Left Triceps Radial C6-7-8 Nml Nml Nml Nml Nml 0 Nml Complete Left Deltoid Axillary C5-6 Nml Nml Nml Nml Nml 0 Nml Complete FINDINGS: Left median sensory nerve showed prolonged peak latency. Significant interlatency difference between left median radial sensory nerves. All other nerves tested were within normal. Concentric needle EMG was performed in selected muscles of the left upper extremity. Study did not reveal signs of electric abnormalities as shown in the table above. IMPRESSION: 1. This is an abnormal study. 2. There is electrodiagnostic evidence for left mild median neuropathy at the wrist, consistent with carpal tunnel syndrome. 3. There is no electrodiagnostic evidence for ulnar neuropathy, brachial plexopathy, or cervical radiculopathy. 4. There is no electrodiagnostic evidence for median neuropathy on the right. Thank you for your kind referral. Harmony Aldana MD, ALONZO Board Certified, [place] Board [employer] and Rehabilitation (ABPMR) Board Certified, [place] Board of Electrodiagnostic Medicine (ABEM) CODIN [phone] x 2 MTDD
--- OUTSIDE RECORDS SUMMARY | 2024-09-12 10:32 | XMS_ITS | Clinical Summary ---
Author Organization [facility] lin Address [address] [place] [address] Care Team Providers Care Milling Machine Operator Name Role Phone Pcp, No Primary Care Provider [phone] Social History Tobacco Use Types Packs/Day Years [...] Adults 18 yrs or above (or HM Modifier)([facility]) 1982 Hepatitis C Virus Infection in Adolescents and Adults: Screening (or Modifier) ([facility]) 2000 SDMN Screening Reminder: Kourtney rueda for all adults ([facility]) 2000 Tobacco Smoking Cessation: i n Adults excluding Women: Behavioral and Pharmacotherapy Interventions ([facility]) 2000 DTaP/Tdap/Td Vaccines ([facility]) (1 - Tdap) 2001 Lipid Screening: Once for Wo men aged 20 to 45 yrs ([facility]) 2002 Cervical Cancer Screenin 1-65 yrs of age (or Modifier) 11/15/2003 Cervical Cancer Screening: P ap every 3 yrs pts age 21-65 11/15/2003 Cervical Cancer: Pap Screeni ng with Modifier timing ([facility]) 11/15/2003 Cervical Cancer: hrHPV alone or with cotesting Pap for Pts 30-65yrs screening every 5yrs ([facility]) 11/15/2003 COVID-19 Vaccine Screening: Initial Series and Booster Status ([facility]) (2023- season) 2024 Flu Vaccination: Yearly for ages 18mos through 64 years (or Modifier)([facility]) 12/14/2024 Zoster/Shingles Vaccine Seri es Screening: Adults aged 18+ yrs (or HM Modifiers)([facility]) (1 of 2) 2032 Pneumococcal Vaccination Scr eening: Pts 0-19 & 19-49 yrs of age ([facility]) Aged Out No longer eligible based on patient's age to complete this topic Medical Devices Not on file Insurance [facility] Care Teams Milling Machine Operator Relationship Specialty Start Date End Date Pcp, No PCP - General Family Medicine 04/22/21
== END 2024-09-12 09:44 | disposition home or self-care (01) ==
LOC: HO.NEURO 09:43
PROVIDERS: PCP Internal Medicine Geriatric Medicine; Visit Provider Physician Assistant
DX: M54.12 Radiculopathy, cervical region (principal); Z98.1 Arthrodesis status; R94.131 Abnormal electromyogram [EMG]
CPT/HCPCS: 95886; 95911

== ENCOUNTER → 2024-09-12 09:45 | Outpatient (BNV) | payer OTHER, SELFPAY | PROVIDERS: PCP Internal Medicine Geriatric Medicine; Visit Provider Physical Medicine & Rehabilitation | DX: G56.02 Carpal tunnel syndrome, left upper limb (principal); R20.0 Anesthesia of skin; R20.2 Paresthesia of skin | CPT/HCPCS: 95886; 95911 ==

== ENCOUNTER 2024-10-04 10:03 | Outpatient (REF) | payer OTHER, SELFPAY ==
--- OUTSIDE RECORDS SUMMARY | 2024-10-04 10:23 | XMS_ITS | Clinical Summary ---
Author Organization [facility] Original & [facility] lin Address [address] [place] [address] Care Team Providers Care Mechanical Drawing Teacher Name Role Phone Pcp, No Primary Care Provider [phone] Social History Tobacco Use Types Packs/Day Years [...] or above (or HM Modifier)([facility]) 1982 Hepatitis C Virus Infection in Adolescents and Adults: Screening (or Modifier) ([facility]) 2000 SDPR Screening Reminder: Kourtney rueda for all adults ([facility]) 2000 Tobacco Smoking Cessation: i n Adults excluding Women: Behavioral and Pharmacotherapy Interventions ([facility]) 2000 DTaP/Tdap/Td Vaccines ([facility]) (1 - Tdap) 2001 zzRETIRED Lipid Screening: O nce for Women aged 20 to 45 yrs ([facility]) 2002 Cervical Cancer Screenin 1-65 yrs of age (or Modifier) 11/15/2003 Cervical Cancer Screening: P ap every 3 yrs pts age 21-65 11/15/2003 Cervical Cancer: Pap Screeni ng with Modifier timing ([facility]) 11/15/2003 Cervical Cancer: hrHPV alone or with cotesting Pap for Pts 30-65yrs screening every 5yrs ([facility]) 11/15/2003 COVID-19 Vaccine Screening: Initial Series and Booster Status ([facility]) (2023-25 season) 2024 Flu Vaccination: Yearly for ages 18mos through 64 years (or Modifier)([facility]) 12/14/2024 Zoster/Shingles Vaccine Seri es Screening: Adults aged 18+ yrs (or HM Modifiers)([facility]) (1 of 2) 2032 Pneumococcal Vaccination Scr eening: Pts 0-19 & 19-49 yrs of age ([facility]) Aged Out No longer eligible based on patient's age to complete this topic Medical Devices Not on file Insurance [facility] Care Teams Mechanical Drawing Teacher Relationship Specialty Start Date End Date Pcp, No PCP - General Family Medicine 04/22/21
== END 2024-10-04 10:04 | disposition home or self-care (01) ==
LOC: HO.HOSX 10:03
PROVIDERS: Visit Provider Physician Assistant
DX: Z13.89 Encounter for screening for other disorder (principal)

== ENCOUNTER 2024-10-05 15:00 | Outpatient (AMB) | payer OTHER, SELFPAY ==
--- OUTSIDE RECORDS SUMMARY | 2024-10-05 15:03 | XMS_ITS | Clinical Summary ---
Author Organization [facility] [facility] lin Address [address] [place] [address] Care Team Providers Care Meat Counter Clerk Name Role Phone Pcp, No Primary Care Provider Social History Tobacco Use Types Packs/Day Years [...] Adults 18 yrs or above (or HM Modifier)([facility]) 1982 Hepatitis C Virus Infection in Adolescents and Adults: Screening (or Modifier) ([facility]) 2000 SDID Screening Reminder: Kourtney rueda for all adults ([facility]) 2000 Tobacco Smoking Cessation: i n Adults excluding Women: Behavioral and Pharmacotherapy Interventions ([facility]) 2000 DTaP/Tdap/Td Vaccines ([facility]) (1 - Tdap) 2001 zzRETIRED Lipid Screening: O nce for Women aged 20 to 45 yrs ([facility]) 2002 Cervical Cancer Screenin 1-65 yrs of age (or Modifier) 11/15/2003 Cervical Cancer Screening: P ap every 3 yrs pts age 21-65 11/15/2003 Cervical Cancer: Pap Screeni ng with Modifier timing ([facility]) 11/15/2003 Cervical Cancer: hrHPV alone or with cotesting Pap for Pts 30-65yrs screening every 5yrs ([facility]) 11/15/2003 COVID-19 Vaccine Screening: Initial Series and Booster Status ([facility]) (2023-25 season) 2024 Flu Vaccination: Yearly for ages 18mos through 64 years (or Modifier)([facility]) 12/14/2024 Zoster/Shingles Vaccine Seri es Screening: Adults aged 18+ yrs (or HM Modifiers)([facility]) (1 of 2) 2032 Pneumococcal Vaccination Scr eening: Pts 0-19 & 19-49 yrs of age ([facility]) Aged Out No longer eligible based on patient's age to complete this topic Medical Devices Not on file Insurance [facility] Care Teams Meat Counter Clerk Relationship Specialty Start Date End Date Pcp, No PCP - General Family Medicine 04/22/21
--- NOTE | 2024-10-05 15:35 | A.SPINEOV_ITS ---
Intake Visit Reasons: loose screw in lumbar Intake Note: Ms. Mehta is here today to f/u on loose screw in the lumbar spine. Hematology Nurse Educator Required: No Allergies erythromycin base Allergy (Severe, Verified 10/05/24 15:36) mouth sores amoxicillin Allergy (Verified 10/05/24 15:36) Rash codeine Adverse Reaction (Severe, Verified 10/05/24 15:36) Nausea and Vomiting Assessment & Plan Assessment & Plan (1) Cervical radiculopathy: Code(s): M54.12 - Radiculopathy, cervical region Category: Medical (2) Back pain: Code(s): M54.9 - Dorsalgia, unspecified Category: Medical Plan MRs Mehta comes in today for a follow-up. About a week ago or so she was doing some work at her house and the day afterward experienced severe onset of pain in her low back. It was incapacitating at the time. She went to urgent care was prescribed some muscle relaxers and anti-inflammatories. She has been taking some oxycodone for neck issues that she has been having and right arm pain. She has been to physical therapy for her neck. She is status post ACDF C6-7. Right now though all she can focus on his her back in the intensity of the pain. She has had to call out from work. No cauda equina symptoms. There is some pain radiating down her leg. On my exam she is very uncomfortable, barely able to stand up on her own. She has full strength of bilateral upper extremities, lower extremity examination was too difficult secondary to pain. Reflexes intact, no Huizar's sign. I encouraged her to continue on with the conservative treatments for now including the medications and tincture of time. I told her we could submit for MRIs for her lumbar spine but given that it has only been 1 week she has not done any physical therapy I did tell her that most likely her insurance company would deny it. Given that she has a history of lumbar fusion from L3-5 there is a outside chance that that might allow it. Incidentally seen on her x-ray that was done in urgent care earlier this week was an L5 pedicle screw fracture. She has adjacent segment disease seen on the x-ray as well. I also will order a cervical MRI because she has been dealing with a year of pain in her neck radiating down her right arm into her hand. She is a previous ACDF at C6-7 so this could be C5-6 adjacent segment disease. She has trialed conservative treatments in the form of anti-inflammatories oxycodone and physical therapy. Total amount of time spent in this visit was 20 minutes in discussion of symptoms, lumbar x-ray imaging results and subsequent plan of care Cyril Archuleta MD,PhD [facility] Orders: Orders MR lumbar spine wo con Today M54.9 - Dorsalgia, unspecified MR cervical spine wo con Today M54.12 - Radiculopathy, cervical region Coding Level of Care Code Est Pt Level 3 (15005) Diagnoses Cervical radiculopathy M54.12 Back pain M54.9
== END 2024-10-05 16:02 | disposition home or self-care (01) ==
LOC: HO.HNS 15:01
PROVIDERS: PCP Internal Medicine Geriatric Medicine; Visit Provider Physician Assistant
DX: M54.12 Radiculopathy, cervical region (principal); M54.9 Dorsalgia, unspecified
CPT/HCPCS: 99213

== ENCOUNTER → 2024-10-05 15:00 | Outpatient (BNVA) | payer OTHER, SELFPAY | PROVIDERS: PCP Internal Medicine Geriatric Medicine; Visit Provider Physician Assistant | DX: M54.12 Radiculopathy, cervical region (principal); M54.9 Dorsalgia, unspecified | CPT/HCPCS: 99212 ==

== ENCOUNTER 2024-10-26 18:05 | Outpatient (REF) | payer OTHER, SELFPAY ==
--- NOTE | ~2024-10-26 | MR_ITS ---
CLINICAL HISTORY: M54.9 - Dorsalgia, unspecified --- Additional Notes or Special Instructions: post o p fuson L3-5 MR lumbar spine without gadolinium Comparison: MR/KO/OT - MR OUTSIDE IMAGES - 08/08/23 17:34 EDT Findings: Spinal fusion hardware seen spanning from L4-S1. Posterior spinal fusion rods and paired pedicle screws are evident as on prior study. Interbody cage device is seen at the L5-S1 level. Modic type 2 endplate changes are seen at L5-S1. 8 mm hemangioma within the T12 vertebral body. No acute fracture. Bony alignment of the lumbar vertebral bodies is anatomic. The conus terminates at T12-L1. No abnormal signal intensity identified within the conus medullaris. No retroperitoneal mass lesions identified. Pisw-js-wxhnydit degenerative change of the sacroiliac joints. Segmental analysis: L1-2: Negative. L2-3: Negative. L3-4: This is the adjacent segment. There is a broad-based disc bulge with superimposed central and left central disc protrusion. Moderate facet joint degenerative change and hypertrophy of the ligamentum flavum is evident. This combination results in moderate central canal stenosis. Neural foramina are patent. L4-5: This is within the fusion. Central canal and neural foramina are patent. L5-S1: This is within the fusion. Broad-based disc bulge which is asymmetric to the right extends into the right neural foramina. Central canal is patent. Mild left-sided and moderate right-sided neural foraminal narrowing. IMPRESSION: 1. Spinal fusion hardware as above. 2. 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 3. Bilateral neural foraminal narrowing at L5-S1. This document has been electronically signed by: Andrews Cannon MD on 10/30/2024 08:35:03
--- NOTE | ~2024-10-26 | MR_ITS ---
CLINICAL HISTORY: M54.12 - Radiculopathy, cervical region --- Additional Notes or Special Instruction s: right arm pain post op acdf C6-7 Exam: MRI of the cervical spine without intravenous contrast. Comparison: None. Findings: Susceptibility artifact is seen at the C6-7 level suggesting disc replacement. Bony alignment of the cervical vertebral bodies is anatomic. No fracture or concerning bone marrow signal alteration. 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 No cord signal abnormality is identified. No prevertebral soft tissue swelling. Segmental analysis: C2-3: Negative. C3-4: Broad-based disc osteophyte complex. Central canal and neural foramina are patent. C4-5: Broad-based disc osteophyte complex with mild facet joint degenerative change. Central canal and neural foramina are patent. C5-6: Broad-based disc osteophyte complex with [id number]-[id number]-ygtmiutb facet joint degenerative change. Mild narrowing of the central canal. Neural foramina are patent. C6-7: This is within the surgical level. Central canal and neural foramina are patent. C7-T1: Negative. Impression: 1. No acute findings. 2. Postsurgical changes above. 3. Degenerative changes as above, most pronounced at C5-6 where there is mild narrowing of the central canal. 4. Borderline findings of chiari 1 malformation. Clinical correlation advised. This document has been electronically signed by: Andrews Cannon MD on 10/30/2024 08:31:25
== END 2024-10-26 18:06 | disposition home or self-care (01) ==
LOC: HO.MRI 18:05
PROVIDERS: Visit Provider Physician Assistant
DX: M54.9 Dorsalgia, unspecified (principal); M54.12 Radiculopathy, cervical region
CPT/HCPCS: 72141; 72148

== ENCOUNTER → 2024-10-26 18:12 | Outpatient (BNV) | payer OTHER, SELFPAY | PROVIDERS: Visit Provider Radiology Diagnostic Radiology | DX: M54.12 Radiculopathy, cervical region (principal); M99.63 Osseous and subluxation stenosis of intervertebral foramina of lumbar region; M48.061 Spinal stenosis, lumbar region without neurogenic claudication | CPT/HCPCS: 72141; 72148 ==

== ENCOUNTER 2024-12-14 14:00 | Outpatient (AMB) | payer OTHER, SELFPAY ==
--- NOTE | 2024-12-14 14:14 | HO.SPINEOV ---
Intake Visit Reasons: MRI follow up Intake Note: Ms. Mehta is here today to F/u on the results of her MRI. Boring Mill Set Up Operator Required: No Allergies erythromycin base Allergy (Severe, Verified 10/05/24 15:36) mouth sores amoxicillin Allergy (Verified 10/05/24 15:36) Rash codeine Adverse Reaction (Severe, Verified 10/05/24 15:36) Nausea and Vomiting Assessment & Plan Assessment & Plan (1) Cervicalgia: Code(s): M54.2 - Cervicalgia Category: Medical (2) Back pain: Code(s): M54.9 - Dorsalgia, unspecified Category: Medical Qualifiers: Chronicity: chronic Back pain laterality: midline Sciatica presence: without sciatica Plan Dear colleague, On 12/14/2024 I saw for follow-up Jen Mehta to review the MRI of the cervical and lumbar spine. Last time she was seen by ANABEL Balderas, who ordered those tests after she was complaining of neck pain radiating down her right arm and acute lumbago. The MRI of the cervical spine shows degenerative disc disease C5-6 without nerve compression. The MRI of the lumbar spine shows adjacent degenerative disc disease L3-4 with moderate central stenosis. Currently she states that the leg pain has mostly disappeared. She does have neck pain without radiation. I explained to her that her spine shows degenerative changes as expected. However, I would not recommend any type of surgery at this moment. I told her to come back to our clinic if she either has constant debilitating back pain or signs of neurogenic claudication. I spent 25 minutes in his consult to review imaging and discussing plan of care. Thank you for allowing me take care of your patient. Do not hesitate to call with any questions or concerns. Chris Archuleta MD, PhD Spine Fellowship Trained Neurosurgeon Director, [facility] Coding Level of Care Code Est Pt Level 3 (58302) Diagnoses Cervicalgia M54.2 Back pain M54.9 Chronicity: chronic Back pain laterality: midline Sciatica presence: without sciatica
== END 2024-12-14 14:47 | disposition home or self-care (01) ==
LOC: HO.HNS 14:01
PROVIDERS: Visit Provider Neurological Surgery
DX: M54.2 Cervicalgia (principal); M54.9 Dorsalgia, unspecified
CPT/HCPCS: 99213

== ENCOUNTER → 2024-12-14 14:00 | Outpatient (BNVA) | payer OTHER, SELFPAY | PROVIDERS: Visit Provider Neurological Surgery | DX: Z71.2 Person consulting for explanation of examination or test findings (principal); M54.2 Cervicalgia; M54.9 Dorsalgia, unspecified | CPT/HCPCS: 99212 ==